=== PATIENT | female | born 1970 | race Caucasian/White ===

== ENCOUNTER → 2016-12-11 | Outpatient (CLI) | payer OTHER ==
[~2016-12-11] MED LIST: ADV500INH INH; CETI10TA3 PO; FURO80TA2 PO; IBUP200T2 PO; IPRATROPIUM INH; KLOR20TA PO; MECL-68 PO; MONT10TA2 PO; OMEP20CA3 PO; SIMV20TA2 PO; VENTAER IN; albuterol neb INH
[2016-12-11 18:33] LABS: BASO # 0.1 K/mm3 (0.0-0.2); BASO % 1.2 % (0.0-1.0); EOS # 0.2 K/mm3 (0.0-0.50); EOS % 1.6 % (0.0-3.0); LYMPH # 2.4 K/mm3 (1.5-4.5); MEAN CORPUSCULAR HEMOGLOBIN 30.6 pg (27.0-33.0); MEAN CORPUSCULAR HGB CONC 34.1 g/dl (32.0-36.5); MEAN CORPUSCULAR VOLUME 89.7 fl (80.0-96.0); MONO # 0.6 K/mm3 (0.0-0.8); MONO % 4.9 % (0.0-5.0); NEUTROPHILS # 8.2 K/mm3 (1.8-7.7); NEUTROPHILS % 70.2 % (36.0-66.0); RED CELL DISTRIBUTION WIDTH 13.6 % (11.5-14.5); WHITE BLOOD COUNT 11.6 K/mm3 (4.0-10.0)
[2016-12-11 18:42] LABS: ALBUMIN 3.3 GM/DL (3.2-5.2); ALBUMIN/GLOBULIN RATIO 0.94 (1.00-1.93); ALKALINE PHOSPHATASE 111 U/L (45-117); ALT/SGPT 19 U/L (12-78); ANION GAP 11 MEQ/L (8-16); AST/SGOT 11 U/L (15-37); BILIRUBIN,TOTAL 0.3 MG/DL (0.2-1.0); BLOOD UREA NITROGEN 14 MG/DL (7-18); CALCIUM LEVEL 8.7 MG/DL (8.5-10.1); CARBON DIOXIDE LEVEL 33 MEQ/L (21-32); CHLORIDE LEVEL 98 MEQ/L (98-107); CREATININE FOR GFR 0.72 MG/DL (0.55-1.02); GLOMERULAR FILTRATION RATE > 60.0 (>58); GLUCOSE, FASTING 114 MG/DL (70-105); SODIUM LEVEL 142 MEQ/L (136-145); TOTAL PROTEIN 6.8 GM/DL (6.4-8.2)
[2016-12-11 18:46] LABS: CHOLESTEROL LEVEL 169 MG/DL (<200); TRIGLYCERIDES LEVEL 201 MG/DL (<150)
--- NOTE | 2016-12-12 02:44 | REP ---
Clinical: Dyspnea with acute upper respiratory tract symptoms . Comparison: 01/08/2016 . Technique: PA and lateral. Findings: The mediastinum and cardiac silhouette are normal. The lung gamble are clear and without acute consolidation, effusion, or pneumothorax. The skeletal structures are intact and normal. Impression: 1. No acute cardiopulmonary process. Signed by Alex Bro MD 12/12/2016 02:36 A
== END ==
LOC: M LAB 15:44
PROVIDERS: ATTEND Physician Assistant
DX: J06.9 Acute upper respiratory infection, unspecified (principal); E11.9 Type 2 diabetes mellitus without complications; I10 Essential (primary) hypertension

== ENCOUNTER → 2017-01-23 | Outpatient (CLI) | payer OTHER ==
--- NOTE | 2017-01-23 14:10 | REP ---
EYE, FOREIGN BODY, TWO VIEWS: HISTORY: Foreign body. Mucosal thickening is present in the left maxillary sinus. There is no fracture, bone lesion, or radiopaque foreign body. IMPRESSION: There is no radiopaque foreign body. Signed by Sukumar Petit MD 01/23/2017 02:41 P
== END ==
LOC: M RAD 12:46
PROVIDERS: ATTEND Psychiatry & Neurology Neurology
DX: H44.60 Unspecified retained (old) intraocular foreign body, magnetic (principal)

== ENCOUNTER → 2017-02-10 | Outpatient (REF) | payer OTHER | LOC: M LAB REF 09:31 | PROVIDERS: ATTEND Obstetrics & Gynecology | DX: N92.1 Excessive and frequent menstruation with irregular cycle (principal); A63.0 Anogenital (venereal) warts ==

== ENCOUNTER → 2017-02-13 | Outpatient (CLI) | payer OTHER ==
[2017-02-13 18:05] LABS: BASO % 0.5 % (0.0-1.0); EOS # 0.1 K/mm3 (0.0-0.50); LYMPH # 2.1 K/mm3 (1.5-4.5); LYMPH % 23.6 % (24.0-44.0); MEAN CORPUSCULAR HGB CONC 33.1 g/dl (32.0-36.5); MEAN CORPUSCULAR VOLUME 90.5 fl (80.0-96.0); MONO # 0.6 K/mm3 (0.0-0.8); MONO % 6.9 % (0.0-5.0); NEUTROPHILS % 67.3 % (36.0-66.0); RED CELL DISTRIBUTION WIDTH 12.8 % (11.5-14.5)
== END ==
LOC: M WUC 12:16
PROVIDERS: ATTEND Physician Assistant
DX: D72.829 Elevated white blood cell count, unspecified (principal)

== ENCOUNTER → 2017-02-13 | Outpatient (CLI) | payer OTHER ==
[2017-02-13 18:00] LABS: ALBUMIN 3.1 GM/DL (3.2-5.2); ALBUMIN/GLOBULIN RATIO 0.86 (1.00-1.93); ALKALINE PHOSPHATASE 90 U/L (45-117); ALT/SGPT 18 U/L (12-78); ANION GAP 9 MEQ/L (8-16); AST/SGOT 7 U/L (15-37); BILIRUBIN,TOTAL 0.2 MG/DL (0.2-1.0); BLOOD UREA NITROGEN 11 MG/DL (7-18); CARBON DIOXIDE LEVEL 32 MEQ/L (21-32); CHLORIDE LEVEL 99 MEQ/L (98-107); CREATININE FOR GFR 0.72 MG/DL (0.55-1.02); GLOMERULAR FILTRATION RATE > 60.0 (>58); GLUCOSE, FASTING 169 MG/DL (70-105); POTASSIUM SERUM 3.7 MEQ/L (3.5-5.1); SODIUM LEVEL 140 MEQ/L (136-145); TOTAL PROTEIN 6.7 GM/DL (6.4-8.2)
[2017-02-13 18:43] LABS: BASO % 0.6 % (0.0-1.0); EOS # 0.1 K/mm3 (0.0-0.50); EOS % 1.2 % (0.0-3.0); LARGE UNSTAINED CELL # 0.1 K/mm3 (0.0-0.4); LARGE UNSTAINED CELL % 1.1 % (0.0-4.0); LYMPH % 23.6 % (24.0-44.0); MEAN CORPUSCULAR HEMOGLOBIN 30.1 pg (27.0-33.0); MEAN CORPUSCULAR VOLUME 91.4 fl (80.0-96.0); MONO # 0.4 K/mm3 (0.0-0.8); MONO % 4.8 % (0.0-5.0); NEUTROPHILS # 5.8 K/mm3 (1.8-7.7); NEUTROPHILS % 68.7 % (36.0-66.0); PLATELET COUNT, AUTOMATED 208 k/mm3 (150-450); RED CELL DISTRIBUTION WIDTH 12.8 % (11.5-14.5); WHITE BLOOD COUNT 8.4 K/mm3 (4.0-10.0)
[2017-02-13 19:52] LABS: ERYTHROCYTE SEDIMENTATION RATE 28 mm/hr (0-20)
== END ==
LOC: M WUC 12:18
PROVIDERS: ATTEND Psychiatry & Neurology Neurology
DX: R51 Headache (principal)

== ENCOUNTER 2017-05-09 11:49 | Observation (INO) | payer OTHER ==
[~2017-05-09] VITALS: Ht 162.6 cm; Wt 145.3 kg
[2017-05-09] MEDS ORDERED: COMBAER6 INH (12:04)
[2017-05-09] MEDS ORDERED: ASMA110A IN (12:04)
[2017-05-09] MEDS ORDERED: HYDR12.55 PO (12:07)
[2017-05-09] MEDS ORDERED: LOSA50TA20 PO (12:07)
[2017-05-09] MEDS ORDERED: METH-107 PO (12:07)
[2017-05-09] MEDS ORDERED: METF500T PO (12:07)
[2017-05-09] MEDS ORDERED: DEPA250T32 PO (12:07)
[2017-05-09] MEDS ORDERED: GABA-283 PO (12:07)
[2017-05-09] MEDS ORDERED: INVO100T PO (12:08)
[2017-05-09] MEDS ORDERED: PANT40TA2 (12:08)
[2017-05-09] MEDS ORDERED: ALOG25TA (12:08)
[2017-05-09] MEDS ORDERED: PRED20TA PO ×2 (12:18→15:12)
[2017-05-09] MEDS ORDERED: LEVA750T PO (12:18)
[2017-05-09] MEDS ORDERED: methylPREDNISolone INJ 125 MG/2 ML VIAL (J2930) IV ONE (12:30)
--- NOTE | 2017-05-09 12:58 | REP ---
PORTABLE CHEST: AP portable view of the chest is performed and compared to prior study of 12/11/2016. The heart is upper limits of normal in size. No acute infiltrate is seen. Mediastinal silhouette is unchanged. IMPRESSION: No acute infiltrate. Signed by Soto Arcos MD 05/09/2017 05:22 P
[2017-05-09] MEDS: ALBUTEROL SULFATE 2.5 MG/0.5 ML INH NEB SOLN INH SCH ×3 (13:00→13:22)
[2017-05-09 13:10] LABS: BASO # 0.1 K/mm3 (0.0-0.2); BASO % 0.6 % (0.0-1.0); EOS % 0.2 % (0.0-3.0); LARGE UNSTAINED CELL # 0.2 K/mm3 (0.0-0.4); LARGE UNSTAINED CELL % 1.7 % (0.0-4.0); LYMPH # 2.5 K/mm3 (1.5-4.5); LYMPH % 21.2 % (24.0-44.0); MEAN CORPUSCULAR HGB CONC 33.7 g/dl (32.0-36.5); MEAN CORPUSCULAR VOLUME 91.8 fl (80.0-96.0); MONO # 0.7 K/mm3 (0.0-0.8); MONO % 6.1 % (0.0-5.0); NEUTROPHILS # 7.6 K/mm3 (1.8-7.7); NEUTROPHILS % 70.2 % (36.0-66.0); PLATELET COUNT, AUTOMATED 252 k/mm3 (150-450); RED CELL DISTRIBUTION WIDTH 14.5 % (11.5-14.5); WHITE BLOOD COUNT 10.8 K/mm3 (4.0-10.0)
[2017-05-09 13:34] LABS: ALBUMIN/GLOBULIN RATIO 0.67 (1.00-1.93); ALKALINE PHOSPHATASE 86 U/L (45-117); ALT/SGPT 23 U/L (12-78); ANION GAP 13 MEQ/L (8-16); AST/SGOT 11 U/L (15-37); BILIRUBIN,DIRECT < 0.1 MG/DL (0.0-0.2); BILIRUBIN,TOTAL 0.3 MG/DL (0.2-1.0); BLOOD UREA NITROGEN 16 MG/DL (7-18); CALCIUM LEVEL 9.3 MG/DL (8.5-10.1); CARBON DIOXIDE LEVEL 29 MEQ/L (21-32); CHLORIDE LEVEL 95 MEQ/L (98-107); CREATININE FOR GFR 0.96 MG/DL (0.55-1.02); GLOMERULAR FILTRATION RATE > 60.0 (>58); GLUCOSE, FASTING 190 MG/DL (70-105); SODIUM LEVEL 137 MEQ/L (136-145); TOTAL PROTEIN 7.5 GM/DL (6.4-8.2)
[2017-05-09] MEDS ORDERED: IPRATROPIUM 0.5MG/ALBUTEROL 2.5MG INH SOL UD 3ML (DUONEB)(J7620) NEB PRN (14:15)
[2017-05-09] MEDS ORDERED: DEXTROSE 50% 50 ML SYRINGE IV PRN (14:15)
[2017-05-09] MEDS ORDERED: GLUCAGON FOR INJ 1 MG VIAL (J1610) SC PRN (14:15)
[2017-05-09] MEDS ORDERED: ACETAMINOPHEN TAB 650MG DOSE (2X325MG) PO PRN (14:15)
[2017-05-09] MEDS ORDERED: ONDANSETRON 4MG/2ML VIAL (J2405) IV PRN (14:15)
[2017-05-09] MEDS ORDERED: GLUCOSE 4 GM CHEW TABLET PO PRN (14:15)
--- NOTE | 2017-05-09 15:01 | HPEPDOC ---
General Date of Admission 05/09/17 Other Providers PCP: Tacho Lind Attending Physician: BENNETT DOAN MD Chief Complaint The patient is a 47-year-old female admitted with a reason for visit of Short Of Breath/Cough. History of Present Illness 47-year-old female with past medical history of COPD, obstructive sleep apnea on CPAP, dyslipidemia, diabetes mellitus, GERD, and lower extremity dependent edema presents to the ER with a chief complaint of worsening shortness of breath over the last 5 days. The patient states that during this time she has been seen in the urgent care clinic as well as her primary care physician's office at which time she was prescribed antibiotics. However, she states that she has not felt any better despite the antibiotics and consistent use of albuterol. She also notes associated subjective fevers, chills, and generalized muscle aches with malaise. She states that she has been having a cough that is nonproductive. At baseline, the patient states she does not wear any supplemental oxygen and is able to ambulate with a rolling walker without any significant respiratory limitations. However, during this time the patient states that she has been feeling short of breath even while at rest. The patient denies any other acute complaints of chest pain, palpitations, abdominal pain, recent travel, sick contacts, or any nausea/vomiting/diarrhea. In the ER, the patient was noted to be hypoxic with an oxygen saturation of 85 percent on ambulation despite nebulizer therapy and IV Solu-Medrol therapy. At this time, the patient will be admitted under the service of Dr. Doan for further evaluation and management of COPD exacerbation. Home Medications Scheduled (Ibuprofen) 200 Mg Tab, 600 MG PO TIDP, (Reported) Albuterol Sulfate (Ventolin Hfa) Aer, 2 PUFFS IN Q4HP, (Reported) Albuterol/Ipratropium (Combivent Respimat 20-100 Mcg/Act) 1 Aer Aer, 1 PUFF INH Q4H, (Reported) Canagliflozin (Invokana) 100 Mg Tab, 100 MG PO DAILY, (Reported) Cetirizine Hcl (Cetirizine Hcl) 10 Mg Tab, 10 MG PO DAILY, (Reported) Divalproex Sodium (Depakote) 250 Mg Tab, 500 MG PO BID, (Reported) Furosemide (Furosemide) 80 Mg Tab, 80 MG PO BID, (Reported) Gabapentin (Gabapentin) 400 Mg Cap, 600 MG PO TID, (Reported) Hydrochlorothiazide (Hydrochlorothiazide) 12.5 Mg Tab, 25 MG PO DAILY, (Reported ) Levofloxacin Hemihydrate (Levaquin) 750 Mg Tab, 750 MG PO DAILY, (Reported) Losartan Potassium (Losartan Potassium) 50 Mg Tab, 50 MG PO DAILY, (Reported) Metformin Hydrochloride (Metformin HCl) 500 Mg Tab, 500 MG PO BID, (Reported) Methocarbamol (Methocarbamol) 500 Mg Tab, 500 MG PO BID, (Reported) Montelukast Sodium (Montelukast Sodium) 10 Mg Tab, 10 MG PO QHS, (Reported) Prednisone (Prednisone) 20 Mg Tab, 20 MG PO ASDIRECTED, (Reported) Simvastatin (Simvastatin) 20 Mg Tab, 20 MG PO DAILY, (Reported) [albuterol neb] , 3 MG INH Q4H, (Reported) [ipratropium neb q4h] , 0.5 MG INH Q4H, (Reported) Miscellaneous Medications (Asmanex 30 Metered Doses) 110 Mcg/Inh Aer, 110 MCG IN, (Reported) Alogliptin Benzoate (Alogliptin) 25 Mg Tab, (Reported) Pantoprazole Sodium (Pantoprazole Sodium) 40 Mg Tab, (Reported) Allergies Coded Allergies: Latex (Verified Allergy, Intermediate, rash, 05/09/17) TAPE (Verified Allergy, Mild, 05/09/17) Past Medical History Medical History As noted in HPI. Surgical History , kidney stone removal Family History Significant Family History: No pertinent family hx Social History * Smoker: other (the patient states that she has smoked 1-2 packs per day of tobacco for the past 30+ years. Over the last few months the patient states that she has cut this down to half pack a day.) Alcohol: Denies Drugs: denies Recent Travel/Sick Contacts: Denies: Recent travel, Recent sick contacts Ambulates with the assistance of a rolling walker secondary to chronic back pain. Is functionally independent at baseline and lives with her . Currently unemployed, applying for disability. Review of Symptoms Other systems 10 point review of systems negative unless otherwise specified in HPI. Physical Examination General Exam: Positive: Alert, Cooperative, No Acute Distress ENT Exam: Positive: Atraumatic, Mucous membr. moist/pink Neck Exam: Negative: JVD Chest Exam: Positive: Wheezing (diffuse expiratory wheeze noted in all lung gamble bilaterally), Diminished, Negative: Rales Heart Exam: Positive: Rate Normal, Normal S1, Normal S2 Abdomen Exam: Positive: Soft, Negative: Tenderness Extremity Exam: Positive: Other (1+ pitting edema bilaterally.), Negative: Tenderness Psych Exam: Positive: Oriented x 3 Vital Signs Vital Signs Date Time Temp Pulse Resp B/P (MAP) Pulse Ox O2 Delivery O2 Flow Rate FiO2 05/09/17 13:00 05/09/17 11:52 98.5 100 18 88 Room Air Laboratory Data Labs 24H Laboratory Tests 2 05/09/17 12:43: White Blood Count 10.8H, Red Blood Count 4.84, Hemoglobin 15.0, Hematocrit 44.4 , Mean Corpuscular Volume 91.8, Mean Corpuscular Hemoglobin 31.0, Mean Corpuscular Hemoglobin Concent 33.7, Red Cell Distribution Width 14.5, Platelet Count 252, Neutrophils (%) (Auto) 70.2H, Lymphocytes (%) (Auto) 21.2L, Monocytes (%) (Auto) 6.1H, Eosinophils (%) (Auto) 0.2, Basophils (%) (Auto) 0.6 , Neutrophils # (Auto) 7.6, Lymphocytes # (Auto) 2.5, Monocytes # (Auto) 0.7, Eosinophils # (Auto) 0.0, Basophils # (Auto) 0.1, Large Unclassified Cells % 1.7 , Large Unclassified Cells # 0.2, Anion Gap 13, Glomerular Filtration Rate > 60.0, Calcium Level 9.3, Aspartate Amino Transf (AST/SGOT) 11L, Alanine Aminotransferase (ALT/SGPT) 23, Alkaline Phosphatase 86, Total Bilirubin 0.3, Direct Bilirubin < 0.1, Total Creatine Kinase 94, Creatine Kinase MB 1.0, Creatine Kinase MB Relative Index 1.06, Troponin I < 0.02, B-Type Natriuretic Peptide 38.5, Total Protein 7.5, Albumin 3.0L, Albumin/Globulin Ratio 0.67L, Thyroid Stimulating Hormone (TSH) 2.940 CBC/BMP Laboratory Tests 05/09/17 12:43 Red Blood Count 4.84, Mean Corpuscular Volume 91.8, Mean Corpuscular Hemoglobin 31.0, Mean Corpuscular Hemoglobin Concent 33.7, Red Cell Distribution Width 14.5 , Neutrophils (%) (Auto) 70.2 H, Lymphocytes (%) (Auto) 21.2 L, Monocytes (%) ( Auto) 6.1 H, Eosinophils (%) (Auto) 0.2, Basophils (%) (Auto) 0.6, Neutrophils # (Auto) 7.6, Lymphocytes # (Auto) 2.5, Monocytes # (Auto) 0.7, Eosinophils # ( Auto) 0.0, Basophils # (Auto) 0.1 Microbiology Microbiology 05/09/17 Blood Culture, Received Pending 05/09/17 Blood Culture, Received Pending Plan / VTE VTE Prophylaxis Ordered?: Yes Plan Plan Acute hypoxic failure 2/2 COPD exacerbation We will admit the patient to the med/surge unit Chest x-ray with no acute infiltrates IV Solu-Medrol, [id number] nebulizer therapy ordered Blood cultures, sputum culture, and respiratory panel ordered It does appear that the patient's symptomatology is consistent with a viral infection, we will withhold administration any advice at this time We will continue to monitor the patient's respiratory status and down titrate supplemental oxygen as tolerated Diabetes mellitus Continue insulin sliding scale Obstructive sleep apnea on CPAP Patient advised to bring in her own CPAP device for use overnight Dyslipidemia Continue statin GERD Continue PPI Dependent lower extremity edema Patient without any signs of underlying decompensated congestive heart failure Continue with hydrochlorothiazide as prescribed History of migrainous headaches Continue valproate for prophylaxis DVT prophylaxis Lovenox subcutaneously The patient will be admitted under the service of Dr. Doan, who will begin to follow the patient on 05/10/17 at 7am. DIANE SANDERS MD May 09, 2017 15:01
[2017-05-09] MEDS ORDERED: CETI10TA PO (15:12)
[2017-05-09] MEDS ORDERED: DIVA500T3 PO (15:12)
[2017-05-09] MEDS ORDERED: GABA600T PO (15:12)
[2017-05-09] MEDS ORDERED: HYDR25TAB PO (15:12)
[2017-05-09] MEDS ORDERED: ALOG25TA PO (15:12)
[2017-05-09] MEDS ORDERED: ASMA16.7 INH (15:12)
[2017-05-09] MEDS ORDERED: IBUP60TA PO (15:12)
[2017-05-09] MEDS ORDERED: PANT40TA2 PO (15:12)
[2017-05-09] MEDS ORDERED: MONT10TA2 PO (15:12)
[2017-05-09] MEDS ORDERED: NYST100024 TOP (15:15)
[2017-05-09] MEDS ORDERED: SIMV40TA2 PO (15:15)
[2017-05-09] MEDS ORDERED: TYLE325T5 PO (15:15)
[2017-05-09] MEDS ORDERED: POTASSIUM CHLORIDE 10 MEQ SR TABLET PO ONE (15:15)
[2017-05-09] MEDS ORDERED: IPRASOL4 INH (15:15)
[2017-05-09] MEDS ORDERED: FISH1000 PO (15:16)
[2017-05-09] MEDS ORDERED: VITA100066 PO (15:16)
[2017-05-09 15:37] LABS: MAGNESIUM LEVEL 2.1 MG/DL (1.8-2.4)
[2017-05-09] MEDS: IPRATROPIUM 0.5MG/ALBUTEROL 2.5MG INH SOL UD 3ML (DUONEB)(J7620) NEB SCH ×3 (16:00→23:53)
[2017-05-09] MEDS ORDERED: IBUPROFEN 600 MG TAB PO PRN (16:15)
[2017-05-09] MEDS ORDERED: NYSTATIN 100,000 UNITS/GM TOPICAL PWD 15 GM TOP PRN (16:15)
[2017-05-09 18:30] VITALS: BP 150/78
[2017-05-09] MEDS: HumaLOG INSULIN (NovoLOG) PER UNIT SC SCH ×2 (18:57→20:53)
--- NOTE | 2017-05-09 19:39 | ECGEPIP ---
Stationary ECG Study 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
[2017-05-09 20:22] VITALS: O2SAT 97
[2017-05-09] MEDS: GABAPENTIN 300 MG CAP PO SCH (20:52)
[2017-05-09] MEDS: DIVALPROEX 500 MG TAB PO SCH (20:52)
[2017-05-09] MEDS: METHOCARBAMOL 500 MG TAB PO SCH (20:52)
[2017-05-09] MEDS: methylPREDNISolone INJ 125 MG/2 ML VIAL (J2930) IV SCH (20:52)
[2017-05-09] MEDS: MONTELUKAST 10 MG TAB PO SCH (20:52)
[2017-05-09] MEDS: CETIRIZINE (ZyrTEC) 10 MG TAB PO SCH (20:52)
[2017-05-09] MEDS: SIMVASTATIN 40 MG TAB PO SCH (20:52)
[2017-05-09 22:00] VITALS: BP 133/74
[2017-05-10 02:28] VITALS: O2SAT 90
[2017-05-10] MEDS: IPRATROPIUM 0.5MG/ALBUTEROL 2.5MG INH SOL UD 3ML (DUONEB)(J7620) NEB SCH ×6 (02:34→23:24)
[2017-05-10] MEDS: methylPREDNISolone INJ 125 MG/2 ML VIAL (J2930) IV SCH (05:42)
[2017-05-10 06:00] VITALS: BP 138/65
[2017-05-10 06:08] LABS: MEAN CORPUSCULAR HEMOGLOBIN 30.5 pg (27.0-33.0); MEAN CORPUSCULAR HGB CONC 33.3 g/dl (32.0-36.5); MEAN CORPUSCULAR VOLUME 91.7 fl (80.0-96.0); RED CELL DISTRIBUTION WIDTH 14.6 % (11.5-14.5); WHITE BLOOD COUNT 12.2 K/mm3 (4.0-10.0)
[2017-05-10] MEDS ORDERED: ALBUTEROL SULFATE 2.5 MG/0.5 ML INH NEB SOLN NEB PRN (06:30)
[2017-05-10 06:37] LABS: ANION GAP 8 MEQ/L (8-16); BLOOD UREA NITROGEN 17 MG/DL (7-18); CALCIUM LEVEL 8.8 MG/DL (8.5-10.1); CARBON DIOXIDE LEVEL 32 MEQ/L (21-32); CHLORIDE LEVEL 94 MEQ/L (98-107); CREATININE FOR GFR 0.73 MG/DL (0.55-1.02); GLOMERULAR FILTRATION RATE > 60.0 (>58); GLUCOSE, FASTING 232 MG/DL (70-105); MAGNESIUM LEVEL 2.3 MG/DL (1.8-2.4); POTASSIUM SERUM 3.4 MEQ/L (3.5-5.1); SODIUM LEVEL 134 MEQ/L (136-145)
[2017-05-10] MEDS: METHOCARBAMOL 500 MG TAB PO SCH ×2 (08:20→20:27)
[2017-05-10] MEDS: ENOXAPARIN 40 MG/0.4 ML SYRINGE (J1650) SC SCH (08:20)
[2017-05-10] MEDS: PANTOPRAZOLE 40MG TAB (PROTONIX) PO SCH (08:21)
[2017-05-10] MEDS: OMEGA-3 1050MG CAPSULE PO SCH (08:21)
[2017-05-10] MEDS: DIVALPROEX 500 MG TAB PO SCH ×2 (08:21→20:27)
[2017-05-10] MEDS: GABAPENTIN 300 MG CAP PO SCH ×2 (08:21→20:26)
[2017-05-10] MEDS: hydroCHLOROthiazide 25 MG TAB PO SCH (08:21)
[2017-05-10] MEDS: LOSARTAN 50 MG TAB PO SCH (08:22)
[2017-05-10] MEDS: predniSONE 20 MG TAB PO SCH (08:22)
[2017-05-10] MEDS: HumaLOG INSULIN (NovoLOG) PER UNIT SC SCH ×4 (08:23→20:30)
--- NOTE | 2017-05-10 10:53 | IPNPDOC ---
Subjective Date Seen The patient was seen on 05/10/17. Subjective Chief Complaint/HPI The patient is a 47-year-old female admitted with a reason for visit of Copd Exacerbaton. Events since last encounter feeling better this am . SOB and congestion improving. no fever or chills, no chest pain or SOb , no abdominal pain nausea or vomiting or diarrhea. Objective Physical Examination General Exam: Positive: Alert, Cooperative, No Acute Distress Eye Exam: Positive: PERRLA, Conjunctiva & lids normal, EOMI, Negative: Sclera icteric ENT Exam: Positive: Atraumatic, Mucous membr. moist/pink Neck Exam: Negative: JVD Chest Exam: Positive: Clear to auscultation, Diminished, Negative: Rales Heart Exam: Positive: Rate Normal, Regular Rhythm, Normal S1, Normal S2, Negative: Irregular Rhythm, Gallops, Murmurs, Rubs, Other Abdomen Exam: Positive: Normal bowel sounds, Soft, Negative: Tenderness Extremity Exam: Positive: Edema, Negative: Clubbing, Cyanosis, Normal pulses, Tenderness, Swelling Skin Exam: Positive: Nl turgor and temperature, Negative: Rash, Breakdown Psych Exam: Positive: Oriented x 3 Assessment /Plan Problems (1) COPD exacerbation Status: Acute Problem Text: will continue nebulization , prednisone , antiallergic meds, montelukast. (2) Bacteremia Status: Acute Problem Text: will start vanco rpt blood cultures, mosst possibly contaminant. (3) Diabetes Status: Chronic Problem Text: will start levemir, continue insulin by sliding scale. (4) ZEN on CPAP Status: Chronic (5) Morbid obesity Status: Chronic (6) Encounter for smoking cessation counseling Status: Acute Problem Text: discussed importance of quitting smoking, says she is trying, have offered educational materials to help her quit. Says she has been able to cut down a lot. (7) Hypolipidemia Status: Chronic (8) Hypertension Status: Chronic Plan/VTE VTE Prophylaxis Ordered?: Yes VS, I&O, 24H, Fishbone Vital Signs/I&O Vital Signs Date Time Temp Pulse Resp B/P (MAP) Pulse Ox O2 Delivery O2 Flow Rate FiO2 05/10/17 08:22 138/65 05/10/17 06:00 97.3 70 18 94 NIPPV (BIPAP/CPAP) 05/10/17 02:28 2.0 I&O- Last 24 Hours up to 6 AM 05/10/17 06:00 Intake Total 480 ml Output Total 1300 ml Balance -820 ml Laboratory Data 24H LABS Laboratory Tests 2 05/09/17 12:43: White Blood Count 10.8H, Red Blood Count 4.84, Hemoglobin 15.0, Hematocrit 44.4 , Mean Corpuscular Volume 91.8, Mean Corpuscular Hemoglobin 31.0, Mean Corpuscular Hemoglobin Concent 33.7, Red Cell Distribution Width 14.5, Platelet Count 252, Neutrophils (%) (Auto) 70.2H, Lymphocytes (%) (Auto) 21.2L, Monocytes (%) (Auto) 6.1H, Eosinophils (%) (Auto) 0.2, Basophils (%) (Auto) 0.6 , Neutrophils # (Auto) 7.6, Lymphocytes # (Auto) 2.5, Monocytes # (Auto) 0.7, Eosinophils # (Auto) 0.0, Basophils # (Auto) 0.1, Large Unclassified Cells % 1.7 , Large Unclassified Cells # 0.2, Anion Gap 13, Glomerular Filtration Rate > 60.0, Calcium Level 9.3, Magnesium Level 2.1, Aspartate Amino Transf (AST/SGOT) 11L, Alanine Aminotransferase (ALT/SGPT) 23, Alkaline Phosphatase 86, Total Bilirubin 0.3, Direct Bilirubin < 0.1, Total Creatine Kinase 94, Creatine Kinase MB 1.0, Creatine Kinase MB Relative Index 1.06, Troponin I < 0.02, B- Type Natriuretic Peptide 38.5, Total Protein 7.5, Albumin 3.0L, Albumin/ Globulin Ratio 0.67L, Thyroid Stimulating Hormone (TSH) 2.940 05/09/17 18:37: Bedside Glucose (Misc Panel) 251H 05/09/17 20:27: Bedside Glucose (Misc Panel) 275H 05/10/17 05:32: Anion Gap 8, Glomerular Filtration Rate > 60.0, Calcium Level 8.8, Magnesium Level 2.3, Blood Urea Nitrogen 17, Creatinine 0.73, Sodium Level 134L, Potassium Level 3.4L, Chloride Level 94L, Carbon Dioxide Level 32 CBC/BMP Laboratory Tests 05/09/17 12:43 Red Blood Count 4.84, Mean Corpuscular Volume 91.8, Mean Corpuscular Hemoglobin 31.0, Mean Corpuscular Hemoglobin Concent 33.7, Red Cell Distribution Width 14.5 , Neutrophils (%) (Auto) 70.2 H, Lymphocytes (%) (Auto) 21.2 L, Monocytes (%) ( Auto) 6.1 H, Eosinophils (%) (Auto) 0.2, Basophils (%) (Auto) 0.6, Neutrophils # (Auto) 7.6, Lymphocytes # (Auto) 2.5, Monocytes # (Auto) 0.7, Eosinophils # ( Auto) 0.0, Basophils # (Auto) 0.1 05/10/17 05:32 Red Blood Count 4.43, Mean Corpuscular Volume 91.7, Mean Corpuscular Hemoglobin 30.5, Mean Corpuscular Hemoglobin Concent 33.3, Red Cell Distribution Width 14.6 H, Calcium Level 8.8 Microbiology Microbiology 05/09/17 Blood Culture - Preliminary, Resulted 05/09/17 Blood Culture, Received Pending 05/09/17 Gram Stain - Final, Resulted 05/09/17 Sputum Culture, Resulted Pending 05/09/17 Respiratory Virus Panel (PCR) (NURIS) - Final, Complete BENNETT CARD MD May 10, 2017 10:53
[2017-05-10] MEDS ORDERED: POTASSIUM CHLORIDE 10 MEQ SR TABLET PO ONE (11:00)
--- NOTE | 2017-05-10 11:21 | PHACANCOPD ---
PHARMACY VANCOMYCIN DOSING Pt Demographics Demographics Patient Age:47 , Weight:145.300 , Gender: female Adjusted Body Weight Date: 05/10/17, Adjusted Body Weight: [71] Kg Events Past 24 Hours Events Past 24 Hours: NO: Dialysis, Diuretic Therapy, Change in CrCl, Fever, Elevation in WBC, Pending Diagnostics, Pending Procedures, Other Vancomycin Vancomycin indication: bacteremia Vancomycin Target Ranges: 15-20 mcg/ml Vancomycin Load Y/N: Yes Load Dose Date Time Vancomycin Load Dose: 1000mg Date: 05/10 Time: 11:30 Vancomycin Dose Date: 05/10/17. Current Vancomycin Dose: [1g IV q8h @14] Intermittent Dosing?: No Labs Labs Item Value Date Time White Blood Count 10.8 K/mm3 H 05/09/17 1243 White Blood Count 12.2 K/mm3 H 05/10/17 0532 Creatinine 0.96 MG/DL 05/09/17 1243 Creatinine 0.73 MG/DL 05/10/17 0532 Micro Microbiology 05/10/17 Blood Culture, Received Pending 05/09/17 Blood Culture - Preliminary, Resulted 05/09/17 Blood Culture, Received Pending 05/09/17 Gram Stain - Final, Resulted 05/09/17 Sputum Culture, Resulted Pending 05/09/17 Respiratory Virus Panel (PCR) (NURIS) - Final, Complete Creatinine Clearance Date:05/10/17. Creatinine Clearance: [>100 ml/min using adjusted BW]. Assessment and Plan Maintaining Current Dose?: Yes Reason for dose change: No Dose Change Pharmacist Note Pharmacist Note Date: 05/10/17. Pharmacist note: pt was admitted yesterday for COPD exacerbation , blood cultures 1/2 are preliminary positive for G+ cocci in clusters. She has no relevant culture Hx, and has not been on vancomycin at our facility in the past. She is currently at her baseline SCr. I have started her on a 2g load, followed by 1g IV q8h. I will continue to monitor cultures and follow up with a trough as necessary. Zeke Su Pharm.D. May 10, 2017 11:21
[2017-05-10] MEDS ORDERED: VANCOMYCIN HCL 1,000 MG, VIAL MATE ADAPTER 1 EACH in D5W 250 ML IV ONE (11:30)
[2017-05-10] MEDS: LEVEMIR (INSULIN DETEMIR) 1 UNITS/0.01ML SC SCH (12:26)
[2017-05-10 14:00] VITALS: BP 117/60
[2017-05-10] MEDS: VANCOMYCIN HCL 1,000 MG, VIAL MATE ADAPTER 1 EACH in D5W 250 ML IV SCH ×2 (14:51→21:57)
[2017-05-10] MEDS: MONTELUKAST 10 MG TAB PO SCH (20:26)
[2017-05-10] MEDS: CETIRIZINE (ZyrTEC) 10 MG TAB PO SCH (20:26)
[2017-05-10] MEDS: SIMVASTATIN 40 MG TAB PO SCH (20:27)
[2017-05-10 22:00] VITALS: BP 145/75
[2017-05-10 23:17] VITALS: O2SAT 97
[2017-05-11] MEDS: IPRATROPIUM 0.5MG/ALBUTEROL 2.5MG INH SOL UD 3ML (DUONEB)(J7620) NEB SCH ×3 (03:58→11:04)
[2017-05-11 06:00] VITALS: BP 134/86
[2017-05-11 06:02] LABS: MEAN CORPUSCULAR HEMOGLOBIN 30.8 pg (27.0-33.0); MEAN CORPUSCULAR HGB CONC 33.5 g/dl (32.0-36.5); MEAN CORPUSCULAR VOLUME 92.1 fl (80.0-96.0); RED CELL DISTRIBUTION WIDTH 14.6 % (11.5-14.5); WHITE BLOOD COUNT 11.3 K/mm3 (4.0-10.0)
[2017-05-11] MEDS: VANCOMYCIN HCL 1,000 MG, VIAL MATE ADAPTER 1 EACH in D5W 250 ML IV SCH (06:20)
[2017-05-11 06:31] LABS: ANION GAP 8 MEQ/L (8-16); BLOOD UREA NITROGEN 15 MG/DL (7-18); CALCIUM LEVEL 8.4 MG/DL (8.5-10.1); CARBON DIOXIDE LEVEL 32 MEQ/L (21-32); CHLORIDE LEVEL 97 MEQ/L (98-107); CREATININE FOR GFR 0.75 MG/DL (0.55-1.02); GLOMERULAR FILTRATION RATE > 60.0 (>58); GLUCOSE, FASTING 175 MG/DL (70-105); MAGNESIUM LEVEL 2.3 MG/DL (1.8-2.4); SODIUM LEVEL 137 MEQ/L (136-145)
[2017-05-11] MEDS ORDERED: POTASSIUM CHLORIDE 10 MEQ SR TABLET PO ONE ×2 (08:00→10:00)
[2017-05-11] MEDS ORDERED: PRED10TA PO (08:03)
[2017-05-11] MEDS: LEVEMIR (INSULIN DETEMIR) 1 UNITS/0.01ML SC SCH (08:47)
[2017-05-11] MEDS: OMEGA-3 1050MG CAPSULE PO SCH (08:48)
[2017-05-11] MEDS: ENOXAPARIN 40 MG/0.4 ML SYRINGE (J1650) SC SCH (08:48)
[2017-05-11] MEDS: METHOCARBAMOL 500 MG TAB PO SCH (08:48)
[2017-05-11] MEDS: GABAPENTIN 300 MG CAP PO SCH (08:48)
[2017-05-11 08:49] VITALS: BP 134/86
[2017-05-11] MEDS: LOSARTAN 50 MG TAB PO SCH (08:49)
[2017-05-11] MEDS: DIVALPROEX 500 MG TAB PO SCH (08:49)
[2017-05-11] MEDS: predniSONE 20 MG TAB PO SCH (08:49)
[2017-05-11] MEDS: PANTOPRAZOLE 40MG TAB (PROTONIX) PO SCH (08:50)
[2017-05-11] MEDS: hydroCHLOROthiazide 25 MG TAB PO SCH (08:50)
[2017-05-11] MEDS: HumaLOG INSULIN (NovoLOG) PER UNIT SC SCH (08:50)
--- NOTE | 2017-05-12 21:59 | DSES ---
DATE OF ADMISSION: 05/09/2017 DATE OF DISCHARGE: 05/11/2017 PRIMARY CARE PROVIDER: Tacho Lind MD DISCHARGE DIAGNOSES: 1. Chronic obstructive pulmonary disease (COPD) exacerbation. 2. Acute bronchitis. 3. Obstructive sleep apnea (ZEN) on continuous positive airway pressure (CPAP). 4. Dyslipidemia. 5. Diabetes. 6. Gastroesophageal reflux disease (GERD). 7. Morbid obesity. 8. Bacteremia with gram-positive cocci in clusters, one out of two bottles, contaminant. DISCHARGE MEDICATIONS: - Tylenol 650 mg by mouth four times a day as needed for pain - albuterol ipratropium nebulizer solution one solution four times a day - albuterol ipratropium MDI one puff every four hours as needed for shortness of breath - alogliptin 25 mg by mouth daily - canagliflozin 100 mg by mouth daily - cetirizine 10 mg at bedtime - vitamin D 1000 units once a week - divalproex sodium 500 mg by mouth twice a day - fish oil 1000 mg by mouth every week - gabapentin 600 mg by mouth twice a day - hydrochlorothiazide 25 mg by mouth daily - ibuprofen 600 mg by mouth four times a day as needed for pain - levofloxacin 750 mg by mouth at bedtime - losartan 50 mg by mouth daily - metformin 500 mg by mouth twice a day - methocarbamol 500 mg by mouth twice a day - mometasone inhaler 100 mcg at bedtime - montelukast 10 mg at bedtime - Nystatin powder twice a day as needed for rash - pantoprazole 40 mg by mouth daily - prednisone tapering course as directed - simvastatin 40 mg at bedtime. HOSPITAL COURSE: This is a 47 female who presented to the hospital with complaints of increasing shortness of breath and congestion and cough going on for one week. Went to see urgent care and followed by primary care, and was instructed to come to the emergency room. In the emergency department (ED), the patient was found to have COPD exacerbation and acute bronchitis. The patient was admitted to hospital, treated with nebulizers and steroids. The patient's initial blood culture from ED one out of two bottles came back positive for gram-positive cocci in clusters, so the patient was empirically started on vancomycin. However, the second bottle came back negative, so it was thought to be contaminant, so vancomycin was discontinued. The patient was given prescription for Levofloxacin and discharged. The patient's potassium was low due to nebulizers, so was given replacement. At present, the patient's symptoms have almost resolved. The patient's vitals are stable and the patient is functionally at baseline. The patient is going to be discharged home in stable condition. PHYSICAL EXAMINATION: VITAL SIGNS: Temperature 96.1, pulse 75, respiratory rate 18, blood pressure 134/86, pulse oximetry 92% with two liters. Subsequently, the patient's oxygenation was checked, it was 96% on room air. GENERAL: Patient awake, alert, and oriented times three. Sitting up in bed in no acute distress. HEENT: Normocephalic, atraumatic. Moist mucous membranes. Anicteric eyes. CHEST: Bilateral mild wheezing. No crackles. Good air entry. CARDIOVASCULAR: S1, S2 regular. No rub, murmur or gallop. ABDOMEN: Obese, soft, nontender. Bowel sounds present. EXTREMITIES: No edema. LABORATORY DATA: WBC 11.3, hemoglobin 13.6, platelets 223. Sodium 137, potassium 3, has been replaced, chloride 97, bicarbonate 32, BUN 15, creatinine 0.7, glucose 175, calcium 8.4, magnesium 2.3. IMAGING: Chest x-ray: No acute infiltrate. DISPOSITION: The patient is discharged home in stable condition. DISCHARGE INSTRUCTIONS: Patient to followup with primary care provider in one week. Carbohydrate consistent diet. Activity as tolerated. MTDD
== END 2017-05-11 12:22 | disposition home or self-care (01) ==
LOC: M ED 12:26 → M ED INP 14:14 → INTOOBSV 14:14 → M MS5PR 16:16
PROVIDERS: ADMIT Internal Medicine; ATTEND Internal Medicine Nephrology
DX: J44.1 Chronic obstructive pulmonary disease with (acute) exacerbation (principal); R78.81 Bacteremia; J20.9 Acute bronchitis, unspecified; G47.33 Obstructive sleep apnea (adult) (pediatric); E78.5 Hyperlipidemia, unspecified; E11.9 Type 2 diabetes mellitus without complications; K21.9 Gastro-esophageal reflux disease without esophagitis; Z95.0 Presence of cardiac pacemaker; F17.210 Nicotine dependence, cigarettes, uncomplicated; Z91.040 Latex allergy status; Z79.899 Other long term (current) drug therapy; R60.9 Edema, unspecified; E66.01 Morbid (severe) obesity due to excess calories

== ENCOUNTER → 2017-07-04 | Outpatient (CLI) | payer OTHER ==
[~2017-07-04] MED LIST changes: +ALOG25TA; +ALOG25TA PO; +ASMA110A IN; +ASMA16.7 INH; +CETI10TA PO; +COMBAER6 INH; +DEPA250T32 PO; +DIVA500T3 PO; +FISH1000 PO; +GABA-283 PO; +GABA600T PO; +HYDR12.55 PO; +HYDR25TAB PO; +IBUP1TAB6 PO; +INVO100T PO; +IPRASOL4 INH; +LEVA750T7 PO; +LOSA50TA20 PO; +METF500T13 PO; +METH1TAB40 PO; +NYST1POW9 TOP; +PANT40TA2; +PANT40TA2 PO; +PRED10TA2 PO; +PRED20TA PO; +SIMV40TA2 PO; +TYLE325T5 PO; +VITA100066 PO
[2017-07-04 18:41] LABS: ALBUMIN 3.1 GM/DL (3.2-5.2); ANION GAP 11 MEQ/L (8-16); BLOOD UREA NITROGEN 12 MG/DL (7-18); CALCIUM LEVEL 8.9 MG/DL (8.5-10.1); CARBON DIOXIDE LEVEL 31 MEQ/L (21-32); CHLORIDE LEVEL 98 MEQ/L (98-107); CREATININE FOR GFR 0.75 MG/DL (0.55-1.02); GLOMERULAR FILTRATION RATE > 60.0 (>58); GLUCOSE, FASTING 106 MG/DL (70-105); MAGNESIUM LEVEL 1.9 MG/DL (1.8-2.4); PHOSPHORUS LEVEL 3.9 MG/DL (2.5-4.9); POTASSIUM SERUM 3.5 MEQ/L (3.5-5.1); SODIUM LEVEL 140 MEQ/L (136-145)
== END ==
LOC: M WUC 15:16
PROVIDERS: ATTEND Internal Medicine Cardiovascular Disease
DX: I10 Essential (primary) hypertension (principal)

== ENCOUNTER → 2017-08-15 | Outpatient (CLI) | payer OTHER ==
--- NOTE | 2017-08-15 12:58 | REP ---
PELVIC ULTRASOUND: Real-time sonographic of the pelvis performed utilized transabdominal and endovaginal technique. Study is extremely limited due to patient body habitus. Urinary bladder measures 12.0 x 5.1 x 8.7 cm. Uterus measures 7.5 x 3.2 x 3.6 cm. Endometrial thickness is 8 mm. Right ovary measures 1.8 x 1.2 x 2.1 cm and left ovary 4.0 x 4.0 x 3.4 cm. There is a left ovarian cyst which measures 2.8 x 2.2 x 2.8 cm. There is blood flow seen in each ovary with duplex Doppler evaluation, with no torsion. There is no other evidence of adnexal mass or free fluid. Tiny nabothian cysts are seen in the region of the cervix. IMPRESSION: Small left ovarian cysts 2.8 cm in diameter. Signed by Soto Arcos MD 08/15/2017 02:24 P
== END ==
LOC: M RAD 10:55
PROVIDERS: ATTEND Physician Assistant
DX: N83.202 Unspecified ovarian cyst, left side (principal)

== ENCOUNTER → 2017-10-20 | Outpatient (CLI) | payer OTHER ==
[2017-10-20 14:56] LABS: ALBUMIN/GLOBULIN RATIO 0.79 (1.00-1.93); ALKALINE PHOSPHATASE 93 U/L (45-117); ALT/SGPT 16 U/L (12-78); ANION GAP 9 MEQ/L (8-16); AST/SGOT 10 U/L (7-37); BILIRUBIN,TOTAL 0.3 MG/DL (0.2-1.0); BLOOD UREA NITROGEN 13 MG/DL (7-18); CALCIUM LEVEL 9.4 MG/DL (8.5-10.1); CARBON DIOXIDE LEVEL 34 MEQ/L (21-32); CHLORIDE LEVEL 94 MEQ/L (98-107); GLOMERULAR FILTRATION RATE > 60.0 (>58); GLUCOSE, FASTING 152 MG/DL (70-105); POTASSIUM SERUM 4.1 MEQ/L (3.5-5.1); SODIUM LEVEL 137 MEQ/L (136-145); TOTAL PROTEIN 6.8 GM/DL (6.4-8.2)
[2017-10-20 15:19] LABS: BASO # 0.1 10^3/uL (0.0-0.2); BASO % 0.6 % (0.0-1.0); EOS # 0.1 10^3/uL (0.0-0.50); EOS % 1.2 % (0.0-3.0); LYMPH % 28.4 % (24.0-44.0); MEAN CORPUSCULAR HEMOGLOBIN 28.5 pg (27.0-33.0); MEAN CORPUSCULAR HGB CONC 31.8 g/dl (32.0-36.5); MEAN CORPUSCULAR VOLUME 89.6 fl (80.0-96.0); MONO # 0.5 10^3/uL (0.0-0.8); MONO % 4.8 % (0.0-5.0); NEUTROPHILS # 6.8 10^3/uL (1.8-7.7); PLATELET COUNT, AUTOMATED 282 10^3/uL (150-450); RED CELL DISTRIBUTION WIDTH 14.6 % (11.5-14.5); WHITE BLOOD COUNT 10.7 10^3/uL (4.0-10.0)
== END ==
LOC: M WUC 12:46
PROVIDERS: ATTEND Psychiatry & Neurology Neurology
DX: Z51.81 Encounter for therapeutic drug level monitoring (principal)

== ENCOUNTER → 2018-04-27 | Outpatient (CLI) | payer OTHER ==
[2018-04-27 15:00] LABS: BASO # 0.1 10^3/uL (0.0-0.2); BASO % 0.8 % (0.0-1.0); EOS # 0.2 10^3/uL (0.0-0.50); EOS % 2.1 % (0.0-3.0); HEMOGLOBIN 13.5 g/dl (12.0-15.5); IMMATURE GRANULOCYTE % 0.6 % (0-3.0); LYMPH # 3.3 10^3/uL (1.5-4.5); LYMPH % 38.2 % (24.0-44.0); MEAN CORPUSCULAR HEMOGLOBIN 28.7 pg (27.0-33.0); MEAN CORPUSCULAR HGB CONC 32.1 g/dl (32.0-36.5); MEAN CORPUSCULAR VOLUME 89.4 fl (80.0-96.0); MONO # 0.5 10^3/uL (0.0-0.8); MONO % 5.6 % (0.0-5.0); NEUTROPHILS # 4.6 10^3/uL (1.8-7.7); NEUTROPHILS % 52.7 % (36.0-66.0); PLATELET COUNT, AUTOMATED 243 10^3/uL (150-450); RED CELL DISTRIBUTION WIDTH 15.1 % (11.5-14.5); WHITE BLOOD COUNT 8.7 10^3/uL (4.0-10.0)
[2018-04-27 15:20] LABS: AMMONIA 40 uMOL/L (<32)
[2018-04-27 15:30] LABS: ALBUMIN 3.2 GM/DL (3.2-5.2); ALBUMIN/GLOBULIN RATIO 0.86 (1.00-1.93); ALKALINE PHOSPHATASE 111 U/L (45-117); ALT/SGPT 18 U/L (12-78); ANION GAP 6 MEQ/L (8-16); AST/SGOT 9 U/L (7-37); BILIRUBIN,TOTAL 0.2 MG/DL (0.2-1.0); BLOOD UREA NITROGEN 21 MG/DL (7-18); CALCIUM LEVEL 9.1 MG/DL (8.5-10.1); CARBON DIOXIDE LEVEL 37 MEQ/L (21-32); CHLORIDE LEVEL 101 MEQ/L (98-107); CREATININE FOR GFR 0.67 MG/DL (0.55-1.30); GLOMERULAR FILTRATION RATE > 60.0 (>51); GLUCOSE, FASTING 157 MG/DL (70-100); SODIUM LEVEL 144 MEQ/L (136-145); TOTAL PROTEIN 6.9 GM/DL (6.4-8.2); VALPROIC ACID (DEPAKOTE) 30.8 UG/ML (50.0-100.0)
== END ==
LOC: M WUC 13:07
DX: M25.512 Pain in left shoulder (principal); R51 Headache
CPT/HCPCS: 82140

== ENCOUNTER → 2018-09-01 | Outpatient (REF) | LOC: M SMT 12:47 | DX: Z00.00 Encounter for general adult medical examination without abnormal findings (principal) ==

== ENCOUNTER → 2018-10-14 | Outpatient (REF) | payer OTHER ==
[2018-10-14 12:11] LABS: ALBUMIN 3.4 GM/DL (3.2-5.2); ALBUMIN/GLOBULIN RATIO 0.94 (1.00-1.93); ALKALINE PHOSPHATASE 110 U/L (45-117); ALT/SGPT 23 U/L (12-78); ANION GAP 7 MEQ/L (8-16); AST/SGOT 10 U/L (7-37); BILIRUBIN,TOTAL 0.3 MG/DL (0.2-1.0); BLOOD UREA NITROGEN 18 MG/DL (7-18); CALCIUM LEVEL 8.9 MG/DL (8.5-10.1); CARBON DIOXIDE LEVEL 31 MEQ/L (21-32); CHLORIDE LEVEL 103 MEQ/L (98-107); CHOLESTEROL LEVEL 179 MG/DL (<200); CHOLESTEROL RISK RATIO 5.593 (<5); CREATININE FOR GFR 0.77 MG/DL (0.55-1.30); GLOMERULAR FILTRATION RATE > 60.0 (>51); GLUCOSE, FASTING 149 MG/DL (70-100); HDL CHOLESTEROL 32 MG/DL (>40); LDL CHOLESTEROL 103 MG/DL (<100); NON-HDL-C 147 MG/DL; POTASSIUM SERUM 4.2 MEQ/L (3.5-5.1); SODIUM LEVEL 141 MEQ/L (136-145); TRIGLYCERIDES LEVEL 218 MG/DL (<150)
[2018-10-14 12:14] LABS: VITAMIN B12 LEVEL 1303 PG/ML (247-911)
[2018-10-14 12:37] LABS: MAU/CREAT RATIO 40.7 MCG/MG (0.0-30.0)
[2018-10-14 13:17] LABS: ESTIMATED AVERAGE GLUCOSE 174 MG/DL (60-110); HEMOGLOBIN A1c 7.7 %
== END ==
LOC: M SFHCPLAZ 09:28
DX: E11.9 Type 2 diabetes mellitus without complications (principal); Z13.220 Encounter for screening for lipoid disorders
CPT/HCPCS: 82607

== ENCOUNTER → 2018-11-10 | Outpatient (REF) | payer OTHER ==
[~2018-11-10] MED LIST changes: -DIVA500T3 PO; +DIVA500T94 PO; -GABA-283 PO; +GABA-845 PO; +IPRA0.00 INH; -IPRASOL4 INH; -LOSA50TA20 PO; +LOSA50TA73 PO; -PANT40TA2; -PANT40TA2 PO; +PANT40TA3; +PANT40TA3 PO
[2018-11-10 16:57] LABS: ALBUMIN 3.2 GM/DL (3.2-5.2); ALT/SGPT 18 U/L (12-78); BILIRUBIN,TOTAL 0.4 MG/DL (0.2-1.0); BLOOD UREA NITROGEN 17 MG/DL (7-18); CALCIUM LEVEL 8.5 MG/DL (8.5-10.1); CARBON DIOXIDE LEVEL 30 MEQ/L (21-32); CHLORIDE LEVEL 101 MEQ/L (98-107); CHOLESTEROL LEVEL 156 MG/DL (<200); CREATININE FOR GFR 0.73 MG/DL (0.55-1.30); GLOMERULAR FILTRATION RATE > 60.0 (>51); GLUCOSE, FASTING 136 MG/DL (70-100); HDL CHOLESTEROL 26 MG/DL (>40); LDL CHOLESTEROL 95 MG/DL (<100); NON-HDL-C 130 MG/DL; POTASSIUM SERUM 3.2 MEQ/L (3.5-5.1); SODIUM LEVEL 141 MEQ/L (136-145); TOTAL PROTEIN 6.6 GM/DL (6.4-8.2); TRIGLYCERIDES LEVEL 177 MG/DL (<150)
[2018-11-10 17:05] LABS: VITAMIN B12 LEVEL 890 PG/ML (247-911)
[2018-11-10 17:08] LABS: MAU/CREAT RATIO 48.5 MCG/MG (0.0-30.0)
[2018-11-10 17:32] LABS: HEMOGLOBIN A1c 8.3 %
== END ==
LOC: M SFHCPLAZ 12:42
PROVIDERS: ATTEND Family Medicine
DX: E11.9 Type 2 diabetes mellitus without complications (principal); Z13.220 Encounter for screening for lipoid disorders

== ENCOUNTER → 2018-11-11 | Outpatient (CLI) | payer OTHER ==
[~2018-11-11] MED LIST changes: +GASTROGRAFIN SOLUTION 30ML (Q9963) As Ordered ONE; +ISOVUE-370 76% 100ML VIAL (Q9967) As Ordered ONE
--- NOTE | 2018-11-11 19:59 | REP ---
Clinical: Hernia. Technique: Axial contrast enhanced images of the abdomen using oral (per protocol) and 100 ml Isovue 370 intravenous contrast material with coronal and sagittal re-formations. Comparison: 04/28/2013. Findings: Lung bases are clear. Visualized heart and pericardium normal. Liver, spleen, pancreas, gallbladder, bilateral adrenal glands and kidneys are normal. Visualized enteric system is without obstruction or acute inflammatory process. Normal terminal ileum, proximal appendix and cecum are identified. Scattered colonic diverticula noted. No ascites. No free air. No adenopathy. Abdominal aorta without aneurysm or dissection. Musculoskeletal structures without focal osseous abnormality. A very subtle small midline ventral hernia with a 2.2 cm defect through the midline rectus sheath (images 78 - 88). Impression: No obvious acute abdominal pathology appreciated. Very subtle fat containing ventral hernia cannot be excluded. Electronically Signed by Alex Bro MD 11/11/2018 07:51 P
== END ==
LOC: M RAD 14:03
PROVIDERS: ATTEND Student in an Organized Health Care Education/Training Program
DX: K43.9 Ventral hernia without obstruction or gangrene (principal)
CPT/HCPCS: 74160; Q9963; Q9967

== ENCOUNTER → 2019-03-18 | Outpatient (REF) | payer OTHER ==
[~2019-03-18] MED LIST changes: -GABA600T PO; +GABA600T4 PO; -GASTROGRAFIN SOLUTION 30ML (Q9963) As Ordered ONE; -ISOVUE-370 76% 100ML VIAL (Q9967) As Ordered ONE; -LOSA50TA73 PO; +LOSA50TA88 PO
[2019-03-18 19:21] LABS: ALBUMIN 3.3 GM/DL (3.2-5.2); ALT/SGPT 26 U/L (12-78); BILIRUBIN,TOTAL 0.3 MG/DL (0.2-1.0); BLOOD UREA NITROGEN 11 MG/DL (7-18); CALCIUM LEVEL 8.6 MG/DL (8.5-10.1); CARBON DIOXIDE LEVEL 30 MEQ/L (21-32); CHLORIDE LEVEL 103 MEQ/L (98-107); CREATININE FOR GFR 0.74 MG/DL (0.55-1.30); GLOMERULAR FILTRATION RATE > 60.0 (>51); GLUCOSE, FASTING 254 MG/DL (70-100); POTASSIUM SERUM 4.5 MEQ/L (3.5-5.1); SODIUM LEVEL 139 MEQ/L (136-145); TOTAL PROTEIN 6.7 GM/DL (6.4-8.2)
[2019-03-18 19:39] LABS: BASO # 0.1 10^3/uL (0.0-0.2); BASO % 0.9 % (0.0-1.0); EOS # 0.1 10^3/uL (0.0-0.50); EOS % 1.6 % (0.0-3.0); HEMOGLOBIN 14.3 g/dl (12.0-15.5); LYMPH # 2.6 10^3/uL (1.5-4.5); LYMPH % 31.7 % (24.0-44.0); MEAN CORPUSCULAR HEMOGLOBIN 28.8 pg (27.0-33.0); MEAN CORPUSCULAR HGB CONC 31.1 g/dl (32.0-36.5); MEAN CORPUSCULAR VOLUME 92.6 fl (80.0-96.0); MONO # 0.4 10^3/uL (0.0-0.8); MONO % 4.9 % (0.0-5.0); NEUTROPHILS # 4.9 10^3/uL (1.8-7.7); PLATELET COUNT, AUTOMATED 245 10^3/uL (150-450); RED BLOOD COUNT 4.97 10^6/uL (4.00-5.40); WHITE BLOOD COUNT 8.2 10^3/uL (4.0-10.0)
== END ==
LOC: M LABNEURO 13:10
PROVIDERS: ATTEND Psychiatry & Neurology Neurology
DX: R51 Headache (principal); Z51.81 Encounter for therapeutic drug level monitoring

== ENCOUNTER → 2019-03-23 | Outpatient (REF) | payer OTHER | LOC: M SFHCPLAZ 10:12 | PROVIDERS: ATTEND Family Medicine | DX: Z53.9 Procedure and treatment not carried out, unspecified reason (principal); E11.29 Type 2 diabetes mellitus with other diabetic kidney complication ==

== ENCOUNTER → 2019-04-16 | Outpatient (CLI) | payer OTHER ==
--- NOTE | 2019-04-16 14:21 | REP ---
MR CERVICAL SPINE WITHOUT CONTRAST: HISTORY: Cervicalgia. A disc bulge is present at the C3-4 level. There is mild effacement of the thecal sac without spinal cord compression. Bilateral uncinate process hypertrophy is present. This produces minimal narrowing of the C3 neural foramina. Facet hypertrophy is present on the right at the C4-5 level. This produces mild narrowing of the right C4 neural foramen. The left C4 neural foramen is patent. A small right paracentral disc protrusion is present at the C5-6 level. There is minimal effacement of the thecal sac without spinal cord compression. The C5 neural foramina are patent. A disc bulge and small central disc protrusion are present at the C6-7 level. There is mild effacement of the thecal sac without spinal cord compression. The C6 neural foramina are patent. There is no other disc bulge or herniation. The remaining neural foramina are patent. The spinal cord is normal in signal intensity. The C5-6 intervertebral disc is decreased in height consistent with disc degeneration. Normal signal intensity is present in the cervical vertebral bodies. IMPRESSION: There is cervical spondylosis at the C3-4 through C6-7 levels without spinal cord compression. Electronically Signed by Sukumar Petit MD 04/16/2019 02:21 P
== END ==
LOC: M PLARAD 13:10
PROVIDERS: ATTEND Psychiatry & Neurology Neurology
DX: M47.892 Other spondylosis, cervical region (principal)

== ENCOUNTER → 2019-06-01 | Outpatient (CLI) | payer OTHER ==
--- NOTE | 2019-06-06 11:01 | REPMRS ---
Patient History The patient states she has not had a clinical breast exam in over a year. Patient had first child at age 32. No known family history of cancer. Digital Woman Screen Mammo: June 01, 2019 - Exam #: [id number] Bilateral CC and MLO view(s) were taken. Technologist: Anita Schroeder Technologist Prior study comparison: May 22, 2015, bilateral digital woman screen mammo, performed at [facility]. FINDINGS: There are scattered fibroglandular densities. There has been no change in the appearance of the mammogram from the prior studies. There is a mild amount of scattered fibroglandular density which is fairly symmetric. There is no interval development of dominant mass, architectural distortion, or grouped microcalcification suggestive of malignancy. 3-D tomosynthesis shows no additional findings. Assessment: BI-RADS/ACR category 1 mammogram. Negative Mammogram. Recommendation Routine screening mammogram of both breasts in 1 year (for women over age 40). This patient's Lifetime Breast Cancer Risk is estimated at 14.5 %. This mammogram was interpreted with the aid of an FDA-approved computer-aided dectection system. Electronically Signed By: Venu Cerna MD 06/06/19 1100
== END ==
LOC: M WHC 14:17
PROVIDERS: ATTEND Student in an Organized Health Care Education/Training Program
DX: Z12.31 Encounter for screening mammogram for malignant neoplasm of breast (principal)

== ENCOUNTER → 2019-06-28 | Outpatient (CLI) | payer OTHER ==
[2019-06-28 12:36] LABS: HEMOGLOBIN A1c 8.9 %
[2019-06-28 12:57] LABS: APPEARANCE, URINE CLEAR (CLEAR); BACTERIA, URINE AUTO 1+ (NEGATIVE); BILIRUBIN, URINE AUTO NEGATIVE (NEGATIVE); BLOOD, URINE BLOOD 1+ (NEGATIVE); COLOR, URINE YELLOW (YELLOW); GLUCOSE, URINE (UA) AUTO 3+ mg/dL (NEGATIVE); KETONE, URINE AUTO 1+ mg/dL (NEGATIVE); LEUKOCYTE ESTERASE, URINE AUTO NEGATIVE (NEGATIVE); NITRITE, URINE AUTO NEGATIVE (NEGATIVE); PROTEIN, URINE AUTO 2+ mg/dL (NEGATIVE); RBC, URINE AUTO 21 /HPF (0-3); SPECIFIC GRAVITY URINE AUTO 1.023 (1.002-1.035); SQUAMOUS EPITHELIAL CELL UR AU 8 /HPF (0-6); WBC, URINE AUTO 12 /HPF (0-3)
== END ==
LOC: M LAB 10:53
PROVIDERS: ATTEND Student in an Organized Health Care Education/Training Program
DX: R30.0 Dysuria (principal); Z12.31 Encounter for screening mammogram for malignant neoplasm of breast; E11.29 Type 2 diabetes mellitus with other diabetic kidney complication

== ENCOUNTER → 2019-06-28 | Outpatient (CLI) | payer OTHER ==
[2019-06-28 12:15] LABS: BASO # 0.1 10^3/uL (0.0-0.2); BASO % 0.9 % (0.0-1.0); EOS # 0.1 10^3/uL (0.0-0.50); EOS % 1.4 % (0.0-3.0); HEMATOCRIT 47.7 % (36.0-47.0); HEMOGLOBIN 15.5 g/dl (12.0-15.5); LYMPH # 2.6 10^3/uL (1.5-4.5); LYMPH % 37.4 % (24.0-44.0); MEAN CORPUSCULAR HEMOGLOBIN 30.3 pg (27.0-33.0); MEAN CORPUSCULAR HGB CONC 32.5 g/dl (32.0-36.5); MEAN CORPUSCULAR VOLUME 93.3 fl (80.0-96.0); MONO # 0.4 10^3/uL (0.0-0.8); MONO % 6.2 % (0.0-5.0); NEUTROPHILS # 3.7 10^3/uL (1.8-7.7); NEUTROPHILS % 53.1 % (36.0-66.0); PLATELET COUNT, AUTOMATED 182 10^3/uL (150-450); RED BLOOD COUNT 5.11 10^6/uL (4.00-5.40); WHITE BLOOD COUNT 6.9 10^3/uL (4.0-10.0)
[2019-06-28 12:43] LABS: ALBUMIN 3.3 GM/DL (3.2-5.2); ALT/SGPT 22 U/L (12-78); BILIRUBIN,TOTAL 0.3 MG/DL (0.2-1.0); BLOOD UREA NITROGEN 17 MG/DL (7-18); CALCIUM LEVEL 9.1 MG/DL (8.5-10.1); CARBON DIOXIDE LEVEL 34 MEQ/L (21-32); CHLORIDE LEVEL 97 MEQ/L (98-107); CREATININE FOR GFR 0.76 MG/DL (0.55-1.30); GLOMERULAR FILTRATION RATE > 60.0 (>51); GLUCOSE, FASTING 206 MG/DL (70-100); POTASSIUM SERUM 4.9 MEQ/L (3.5-5.1); SODIUM LEVEL 136 MEQ/L (136-145); TOTAL PROTEIN 6.8 GM/DL (6.4-8.2); VALPROIC ACID (DEPAKOTE) 59.1 UG/ML (50.0-100.0)
== END ==
LOC: M LAB 10:47
PROVIDERS: ATTEND Psychiatry & Neurology Neurology
DX: R51 Headache (principal); Z79.899 Other long term (current) drug therapy

== ENCOUNTER → 2019-07-08 | Outpatient (CLI) | payer OTHER ==
[~2019-07-08] MED LIST changes: +ISOVUE-370 76% 100ML VIAL (Q9967) As Ordered ONE
--- NOTE | 2019-07-08 15:15 | REP ---
REASON FOR EXAM: Dysuria. COMPARISON EXAM: 11/11/2018 and 04/28/2013 CONTRAST: [address] urogram was also obtained. Post processing was performed at the physician workstation. The lung bases are clear and unchanged. The precontrast enhanced portion of the examination shows mild diffuse low density throughout the hepatic parenchyma. There is no nephroureterolithiasis, hydronephrosis, or hydroureter. There are no urinary bladder calcifications. There are a few pelvic phleboliths. There are no choleliths. Contrast enhanced portion of the exam shows no evidence of enhancing hepatic lesion. The gallbladder, spleen, pancreas, adrenal glands and kidneys are within normal limits. There is a single tiny subcentimeter size low density focus in the superior pole of the left kidney consistent with a tiny simple cyst. This shows no enhancement characteristics. The abdominal aorta and para-aortic regions are within normal limits. The bowel loops and their mesenteries are within normal limits. There is no free fluid or free air. There is no intra-abdominal mass or adenopathy. CT PELVIS: There is no mass or adenopathy. There is no free fluid or free air. The bowel loops and their mesenteries are within normal limits. Bone window technique through the exam shows spinal degenerative changes consistent with the patient's age. CT urogram shows excellent visualization of the renal collecting system bilaterally and no evidence of abnormal narrowing or dilatation. Although not completely opacified with intravenous contrast, the opacified portions of the urinary bladder show no abnormalities. There is a small ventral hernia through which only mesentery protrudes and the aperture of which measures approximately 2 cm. Inferior to this, there is an additional ventral hernia of approximately the same size and again through which only mesentery protrudes. These ventral hernias are unchanged from the prior exam. IMPRESSION: 1. There is evidence of mild diffuse fatty infiltration of the liver. 2. There is an incidental tiny left renal cortical cyst. The examination is otherwise unremarkable with findings as described above. Electronically Signed by Mo Franklin DO 07/08/2019 03:48 P
== END ==
LOC: M RAD 13:00
DX: R30.0 Dysuria (principal); K76.0 Fatty (change of) liver, not elsewhere classified; N28.1 Cyst of kidney, acquired
CPT/HCPCS: 74178; Q9967

== ENCOUNTER → 2019-08-24 | Outpatient (REF) | payer OTHER ==
[~2019-08-24] MED LIST changes: -ISOVUE-370 76% 100ML VIAL (Q9967) As Ordered ONE
[2019-08-28 14:56] LABS: URINE COTININE LEVEL None Detected (.); URINE NICOTINE LEVEL None Detected (.)
== END ==
LOC: M LAB REF 13:38
PROVIDERS: ATTEND Surgery
DX: Z01.818 Encounter for other preprocedural examination (principal); F18.10 Inhalant abuse, uncomplicated; F17.210 Nicotine dependence, cigarettes, uncomplicated; E11.9 Type 2 diabetes mellitus without complications; I10 Essential (primary) hypertension; J44.9 Chronic obstructive pulmonary disease, unspecified; G47.33 Obstructive sleep apnea (adult) (pediatric)

== ENCOUNTER → 2019-09-14 | Outpatient (CLI) | payer OTHER ==
--- NOTE | 2019-09-14 09:04 | PFTRPT ---
Height: 64.00 Inches Weight: 316.00 Lbs BSA: 2.38 Diagnosis: R05 DATE OF PROCEDURE: 09/14/2019 ORDERED BY: Michelle Tirado Spirometry: Pre and post bronchodilator study of excellent technical quality. Forced vital capacity reduced. FEV1 out of proportion. Obstructive index is, therefore, reduced. Flow Volume Loop: Expiratory limb of the flow volume loop consistent with flow rate limitation. Favorable bronchodilator response is identified. Lung Volumes: Total lung capacity is normal. Residual volume suggests a degree of air trapping. Diffusing Capacity: Diffusing capacity is normal. Hemoglobin: Hemoglobin reduced at 11.7. Airway Mechanics: Airway resistance elevated with concomitant decrease in airway conductance. IMPRESSION: At least moderate obstructive ventilatory impairment with underlying air trapping. Mild anemia. Favorable bronchodilator response. Please correlate clinically. MTDD
--- NOTE | 2019-09-14 10:15 | REP ---
Two-view chest: 09/14/2019. Indication: Obstructive sleep apnea. Comparison: New 12/11/2016. Findings: The lungs are clear. There is no pleural effusion or pneumothorax. Cardiac silhouette is at the upper limits of normal in size. Impression: No acute cardiopulmonary process. Electronically Signed by Cortez Gray DO 09/14/2019 10:06 A
== END ==
LOC: M CARPUL 08:31
PROVIDERS: ATTEND Nurse Practitioner Family
DX: R05 Cough (principal); G47.33 Obstructive sleep apnea (adult) (pediatric)

== ENCOUNTER → 2019-11-01 | Outpatient (CLI) | payer OTHER ==
[~2019-11-01] MED LIST changes: -SIMV40TA2 PO; +SIMV40TA20 PO
[2019-11-01 17:01] LABS: BASO # 0.1 10^3/uL (0.0-0.2); BASO % 0.7 % (0.0-1.0); EOS # 0.2 10^3/uL (0.0-0.5); EOS % 2.1 % (0.0-3.0); HEMATOCRIT 45.9 % (36.0-47.0); HEMOGLOBIN 14.2 g/dl (12.0-15.5); LYMPH # 2.4 10^3/uL (1.5-5.0); LYMPH % 33.8 % (24.0-44.0); MEAN CORPUSCULAR HEMOGLOBIN 29.4 pg (27.0-33.0); MEAN CORPUSCULAR HGB CONC 30.9 g/dl (32.0-36.5); MONO # 0.4 10^3/uL (0.0-0.8); MONO % 5.8 % (0.0-5.0); NEUTROPHILS % 57.2 % (36.0-66.0); PLATELET COUNT, AUTOMATED 250 10^3/uL (150-450); RED BLOOD COUNT 4.83 10^6/uL (4.00-5.40)
[2019-11-01 17:02] LABS: HEMATOCRIT 45.9 % (36.0-47.0)
[2019-11-01 17:30] LABS: HEMOGLOBIN A1c 7.9 %
[2019-11-01 17:47] LABS: ALBUMIN 3.2 GM/DL (3.2-5.2); ALT/SGPT 34 U/L (12-78); BILIRUBIN,TOTAL 0.5 MG/DL (0.2-1.0); BLOOD UREA NITROGEN 11 MG/DL (7-18); CALCIUM LEVEL 8.8 MG/DL (8.5-10.1); CARBON DIOXIDE LEVEL 30 MEQ/L (21-32); CHLORIDE LEVEL 104 MEQ/L (98-107); CREATININE FOR GFR 0.78 MG/DL (0.55-1.30); FERRITIN 29 NG/ML (8-252); GLOMERULAR FILTRATION RATE > 60.0 (>51); GLUCOSE, FASTING 208 MG/DL (70-100); IRON (FE) 37 UG/DL (50-170); PERCENT SATURATION 11.9 % (13.2-45.0); PHOSPHORUS LEVEL 2.6 MG/DL (2.5-4.9); POTASSIUM SERUM 3.9 MEQ/L (3.5-5.1); SODIUM LEVEL 141 MEQ/L (136-145); TOTAL IRON BINDING CAPACITY 311 UG/DL (250-450); TOTAL PROTEIN 6.9 GM/DL (6.4-8.2)
[2019-11-01 17:52] LABS: TOTAL 25(OH) VITAMIN D 15.7 NG/ML (30.0-100.0); VITAMIN B12 LEVEL 814 PG/ML (247-911)
== END ==
LOC: M WUC 13:42
PROVIDERS: ATTEND Surgery
DX: K91.2 Postsurgical malabsorption, not elsewhere classified (principal); E55.9 Vitamin D deficiency, unspecified; Z98.84 Bariatric surgery status

== ENCOUNTER → 2019-11-02 | Outpatient (REF) | payer OTHER | LOC: M SFHCPLAZ 11:45 | PROVIDERS: ATTEND Family Medicine | DX: E11.29 Type 2 diabetes mellitus with other diabetic kidney complication (principal); Z53.9 Procedure and treatment not carried out, unspecified reason ==

== ENCOUNTER → 2020-05-03 | Outpatient (REF) | payer OTHER ==
[~2020-05-03] MED LIST changes: +MONT10TA4 PO
== END ==
LOC: M SFHCPLAZ 10:49
PROVIDERS: ATTEND Family Medicine
DX: E78.2 Mixed hyperlipidemia (principal); E11.29 Type 2 diabetes mellitus with other diabetic kidney complication

== ENCOUNTER → 2020-05-09 | Outpatient (CLI) | payer MEDICAID ==
[2020-05-09 13:34] LABS: CREATININE, URINE 28.5 MG/DL; MALB URINE SIEMENS 48.8 MG/L; MAU/CREAT RATIO 171.2 MCG/MG (0.0-30.0)
[2020-05-09 13:55] LABS: CHOLESTEROL RISK RATIO 5.58 (<5)
[2020-05-09 14:47] LABS: HEMOGLOBIN A1c 6.5 %
== END ==
LOC: M WUC 09:51
PROVIDERS: ATTEND Student in an Organized Health Care Education/Training Program
DX: E78.2 Mixed hyperlipidemia (principal); E11.29 Type 2 diabetes mellitus with other diabetic kidney complication

== ENCOUNTER → 2021-02-06 | Outpatient (REF) | payer OTHER ==
[~2021-02-06] MED LIST changes: +HYDR-3490 PO; -HYDR25TAB PO; +METH-1164 PO; -METH1TAB40 PO; +MONT10TA10 PO; -MONT10TA4 PO; +PANT40TA29; +PANT40TA29 PO; -PANT40TA3; -PANT40TA3 PO
[2021-02-06 14:00] LABS: HEMATOCRIT 49.8 % (36.0-47.0)
[2021-02-06 14:29] LABS: ALBUMIN 3.6 GM/DL (3.2-5.2); ALT/SGPT 21 U/L (12-78); BILIRUBIN,TOTAL 0.4 MG/DL (0.2-1.0); BLOOD UREA NITROGEN 12 MG/DL (7-18); CALCIUM LEVEL 9.6 MG/DL (8.5-10.1); CARBON DIOXIDE LEVEL 32 MEQ/L (21-32); CHLORIDE LEVEL 107 MEQ/L (98-107); CPK CREATINE PHOSPHOKINASE 77 U/L (26-192); CREATININE FOR GFR 0.74 MG/DL (0.55-1.30); FREE T4 1.09 NG/DL (0.76-1.46); GLOMERULAR FILTRATION RATE > 60.0 (>51); GLUCOSE, FASTING 93 MG/DL (70-100); IRON (FE) 56 UG/DL (50-170); POTASSIUM SERUM 4.9 MEQ/L (3.5-5.1); SODIUM LEVEL 142 MEQ/L (136-145); VITAMIN B12 LEVEL 401 PG/ML (247-911)
[2021-02-06 16:01] LABS: HEMOGLOBIN A1c 5.8 %
== END ==
LOC: M SFHCPLAZ 12:06
PROVIDERS: ATTEND Family Medicine
DX: R29.6 Repeated falls (principal); E11.29 Type 2 diabetes mellitus with other diabetic kidney complication; Z98.84 Bariatric surgery status; R53.82 Chronic fatigue, unspecified

== ENCOUNTER → 2021-04-07 | Outpatient (CLI) | payer OTHER ==
[~2021-04-07] MED LIST changes: +GABA-283 PO; -GABA-845 PO
[2021-04-07 13:54] LABS: CK-MB VALUE MASS < 1.0 NG/ML (<3.6); CPK CREATINE PHOSPHOKINASE 46 U/L (26-192); MB/CK RELATIVE INDEX 2.17 (< OR =4); TROPONIN I < 0.02 NG/ML (< 0.10)
== END ==
LOC: M LAB 12:59
PROVIDERS: ATTEND Student in an Organized Health Care Education/Training Program
DX: R07.9 Chest pain, unspecified (principal)

== ENCOUNTER → 2022-01-25 | Outpatient (REF) | payer OTHER ==
[~2022-01-25] MED LIST changes: +LOSA50TA28 PO; -LOSA50TA88 PO; -MONT10TA10 PO; +MONT10TA97 PO
== END ==
LOC: M SFHCADAM 17:20
PROVIDERS: ATTEND Family Medicine
DX: R09.81 Nasal congestion (principal)

== ENCOUNTER → 2022-03-11 | Outpatient (REF) | payer OTHER ==
[2022-03-11 12:52] LABS: BASO # 0.1 10^3/uL (0.0-0.2); EOS # 0.2 10^3/uL (0.0-0.5); EOS % 2.5 % (0.0-3.0); HEMATOCRIT 50.4 % (36.0-47.0); LYMPH # 2.6 10^3/uL (1.5-5.0); LYMPH % 37.1 % (24.0-44.0); MEAN CORPUSCULAR HEMOGLOBIN 29.4 pg (27.0-33.0); MEAN CORPUSCULAR HGB CONC 31.7 g/dl (32.0-36.5); MEAN CORPUSCULAR VOLUME 92.5 fl (80.0-96.0); MONO # 0.5 10^3/uL (0.0-0.8); MONO % 7.6 % (2.0-8.0); NEUTROPHILS # 3.6 10^3/uL (1.5-8.5); NEUTROPHILS % 51.4 % (36.0-66.0); PLATELET COUNT, AUTOMATED 177 10^3/uL (150-450); RED BLOOD COUNT 5.45 10^6/uL (4.00-5.40); WHITE BLOOD COUNT 7.1 10^3/uL (4.0-10.0)
[2022-03-11 13:18] LABS: HEMOGLOBIN A1c 6.1 %
[2022-03-11 13:27] LABS: ALBUMIN 3.4 GM/DL (3.2-5.2); ALT/SGPT 18 U/L (12-78); BILIRUBIN,TOTAL 0.4 MG/DL (0.2-1.0); BLOOD UREA NITROGEN 10 MG/DL (7-18); CALCIUM LEVEL 9.1 MG/DL (8.5-10.1); CARBON DIOXIDE LEVEL 31 MEQ/L (21-32); CHLORIDE LEVEL 109 MEQ/L (98-107); CHOLESTEROL LEVEL 124 MG/DL (<200); CHOLESTEROL RISK RATIO 2.818 (<5); CREATININE FOR GFR 0.68 MG/DL (0.55-1.30); GLOMERULAR FILTRATION RATE > 60.0 (>51); GLUCOSE, FASTING 124 MG/DL (70-100); HDL CHOLESTEROL 44 MG/DL (>40); LDL CHOLESTEROL 63 MG/DL (<100); NON-HDL-C 80 MG/DL; POTASSIUM SERUM 4.6 MEQ/L (3.5-5.1); SODIUM LEVEL 143 MEQ/L (136-145); TOTAL PROTEIN 6.5 GM/DL (6.4-8.2); TRIGLYCERIDES LEVEL 86 MG/DL (<150)
== END ==
LOC: M SFHCADAM 10:52
PROVIDERS: ATTEND Family Medicine
DX: Z00.00 Encounter for general adult medical examination without abnormal findings (principal)

== ENCOUNTER → 2022-03-28 | Outpatient (CLI) | payer OTHER | LOC: M ADAMS 13:33 | PROVIDERS: ATTEND Nurse Practitioner Family | DX: G47.33 Obstructive sleep apnea (adult) (pediatric) (principal) ==

== ENCOUNTER → 2022-04-12 | Outpatient (CLI) | payer OTHER | LOC: M RAD 13:28 | PROVIDERS: ATTEND Nurse Practitioner Family | DX: Z12.2 Encounter for screening for malignant neoplasm of respiratory organs (principal); F17.218 Nicotine dependence, cigarettes, with other nicotine-induced disorders ==

== ENCOUNTER → 2022-09-03 | Outpatient (REF) | payer OTHER ==
[~2022-09-03] MED LIST changes: -ASMA110A IN; +MOME110A IN
== END ==
LOC: M SFHCADAM 16:32
PROVIDERS: ATTEND Family Medicine
DX: J34.89 Other specified disorders of nose and nasal sinuses (principal)

== ENCOUNTER → 2022-10-03 | Outpatient (REF) | payer OTHER | LOC: M SFHCADAM 15:53 | PROVIDERS: ATTEND Physician Assistant | DX: R05.9 Cough, unspecified (principal) ==

== ENCOUNTER → 2022-11-01 | Outpatient (CLI) | payer OTHER | LOC: M ADAMS 15:01 | PROVIDERS: ATTEND Family Medicine | DX: J44.1 Chronic obstructive pulmonary disease with (acute) exacerbation (principal) ==

== ENCOUNTER → 2022-12-10 | Outpatient (CLI) | payer OTHER ==
[2022-12-10 16:42] LABS: RHEUMATOID FACTOR QUANT 3.5 IU/ML (<14)
[2022-12-10 16:44] LABS: VITAMIN B12 LEVEL 325 PG/ML (211-911)
[2022-12-10 16:45] LABS: FOLATE 12.9 NG/ML (>5.4)
[2022-12-10 19:16] LABS: HEMOGLOBIN A1c 6.1 % (4.0-6.0)
== END ==
LOC: M LABDRWAD 11:37
PROVIDERS: ATTEND Psychiatry & Neurology Neurology
DX: M54.9 Dorsalgia, unspecified (principal); G60.9 Hereditary and idiopathic neuropathy, unspecified

== ENCOUNTER → 2023-03-17 | Outpatient (REF) | payer OTHER ==
[~2023-03-17] MED LIST changes: -ASMA16.7 INH; +MOME13HF4 INH
[2023-03-17 14:15] LABS: ALBUMIN 3.5 G/DL (3.2-5.2); ALKALINE PHOSPHATASE 141 U/L (46-116); ALT/SGPT 18 U/L (7.0-40); AST/SGOT 18 U/L (<34); BILIRUBIN,TOTAL 0.4 MG/DL (0.3-1.2); BLOOD UREA NITROGEN 8 MG/DL (9-23); CALCIUM LEVEL 8.6 MG/DL (8.5-10.1); CARBON DIOXIDE LEVEL 29 MMOL/L (20-31); CHLORIDE LEVEL 109 MMOL/L (98-107); CREATININE FOR GFR 0.76 MG/DL (0.55-1.30); GLOMERULAR FILTRATION RATE > 60.0 (>51); GLUCOSE, FASTING 114 MG/DL (60-100); POTASSIUM SERUM 4.7 MMOL/L (3.5-5.1); SODIUM LEVEL 142 MMOL/L (136-145); TOTAL PROTEIN 6.5 G/DL (5.7-8.2)
[2023-03-17 14:42] LABS: HEMOGLOBIN A1c 6.3 % (4.0-6.0)
== END ==
LOC: M SFHCADAM 09:44
PROVIDERS: ATTEND Family Medicine
DX: E11.69 Type 2 diabetes mellitus with other specified complication (principal)

== ENCOUNTER 2023-03-31 11:11 | Inpatient (IN) | payer OTHER ==
[~2023-03-31] VITALS: Ht 162.6 cm; Wt 103.9 kg
[2023-03-31 12:01] LABS: BASO # 0.1 10^3/uL (0.0-0.2); BASO % 1.1 % (0.0-1.0); EOS # 0.1 10^3/uL (0.0-0.5); EOS % 1.8 % (0.0-3.0); HEMATOCRIT 49.5 % (36.0-47.0); HEMOGLOBIN 15.6 g/dl (12.0-15.5); LYMPH # 1.9 10^3/uL (1.5-5.0); LYMPH % 33.2 % (24.0-44.0); MEAN CORPUSCULAR HEMOGLOBIN 28.9 pg (27.0-33.0); MEAN CORPUSCULAR HGB CONC 31.5 g/dl (32.0-36.5); MEAN CORPUSCULAR VOLUME 91.8 fl (80.0-96.0); MONO # 0.3 10^3/uL (0.0-0.8); NEUTROPHILS # 3.3 10^3/uL (1.5-8.5); NEUTROPHILS % 57.5 % (36.0-66.0); PLATELET COUNT, AUTOMATED 183 10^3/uL (150-450); RED BLOOD COUNT 5.39 10^6/uL (4.00-5.40); WHITE BLOOD COUNT 5.7 10^3/uL (4.0-10.0)
[2023-03-31] MEDS ORDERED: NS 1,000 ML IV ONE (12:05)
[2023-03-31] MEDS ORDERED: ACETAMINOPHEN 1000MG 100ML IV BAG IV ONE (12:10)
[2023-03-31] MEDS ORDERED: METOCLOPRAMIDE INJ 10MG/2ML VIAL IV ONE (12:10)
[2023-03-31 12:22] LABS: INR 0.93; PARTIAL THROMBOPLASTIN TIME 30.2 SECONDS (24.8-34.2); PROTHROMBIN TIME 12.7 SECONDS (12.5-14.5)
[2023-03-31] MEDS ORDERED: ISOVUE-370 76% 100ML VIAL As Ordered ONE (12:27)
[2023-03-31 12:33] LABS: CK-MB VALUE MASS < 1.0 NG/ML (<3.6)
[2023-03-31 12:35] LABS: CPK CREATINE PHOSPHOKINASE 80 U/L (34-145); MB/CK RELATIVE INDEX 1.25 (< OR =4)
[2023-03-31 13:54] LABS: RSV AMPLIFICATION NEGATIVE (NEGATIVE)
[2023-03-31] MEDS ORDERED: ALB2.5NEB INH (14:20)
[2023-03-31] MEDS ORDERED: LISI40TA4 PO (14:24)
[2023-03-31] MEDS ORDERED: FLUT1INH3 INH (14:24)
[2023-03-31] MEDS ORDERED: CYCL-707 PO (14:24)
[2023-03-31] MEDS ORDERED: QUET100T2 PO (14:24)
[2023-03-31] MEDS ORDERED: LAMO25TA4 PO (14:24)
[2023-03-31] MEDS ORDERED: BUDE0.5S6 INH (14:24)
[2023-03-31] MEDS ORDERED: ATOR40TA75 PO (14:27)
[2023-03-31] MEDS ORDERED: AMIT10TA7 PO (14:27)
[2023-03-31] MEDS ORDERED: SPIR1AER INH (14:27)
[2023-03-31] MEDS ORDERED: HOME MED LIST COMPLETE! XX SCH (14:30)
[2023-03-31] MEDS ORDERED: BENZONATATE 100MG CAPSULE PO ONE (15:25)
[2023-03-31] MEDS ORDERED: LORazepam 2 MG/ML 1ML VIAL IV STA (16:50)
[2023-03-31] MEDS ORDERED: NS 500 ML IV ONE (22:45)
[2023-03-31] MEDS ORDERED: ALBUTEROL SULFATE 2.5MG/0.5ML INH NEB SOLN NEB PRN (22:45)
[2023-03-31] MEDS ORDERED: CYCLOBENZAPRINE 10MG TABLET PO PRN (22:45)
[2023-03-31] MEDS ORDERED: ASPIRIN 81MG CHEW TABLET PO ONE (22:45)
[2023-03-31] MEDS: ATORVASTATIN 20 MG TAB PO SCH (23:40)
[2023-03-31] MEDS: lamoTRIgine 25MG TAB PO SCH (23:40)
[2023-03-31] MEDS: NS 1,000 ML IV SCH (23:41)
[2023-04-01] VITALS (17 sets, daily range): BP systolic 151–211; BP diastolic 72–146
[2023-04-01] MEDS: NS 1,000 ML IV SCH (00:42)
[2023-04-01] MEDS: hydrALAZINE 20MG/ML 1ML VIAL IV PRN ×2 (00:49→17:40)
[2023-04-01] MEDS: IPRATROPIUM 0.5MG/ALBUTEROL 2.5MG INH SOL UD 3ML (DUONEB) NEB SCH ×4 (01:30→20:45)
[2023-04-01 05:28] LABS: ERYTHROCYTE SEDIMENTATION RATE 19 mm/hr (0-30)
[2023-04-01 05:40] LABS: CHOLESTEROL LEVEL 88 MG/DL (<200); CHOLESTEROL RISK RATIO 2.97 (<5); HDL CHOLESTEROL 29.6 MG/DL (>40); LDL CHOLESTEROL 44.6 MG/DL (<100); NON-HDL-C 58.4 MG/DL; TRIGLYCERIDES LEVEL 69 MG/DL (<150)
[2023-04-01] MEDS: HEPARIN SOD (PORCINE) 5000UNITS/ML 1ML VIAL/SYRINGE SQ SCH ×3 (05:46→21:34)
[2023-04-01] MEDS ORDERED: ASPIRIN 81MG CHEW TABLET PO SCH (09:00)
[2023-04-01 09:26] LABS: ALKALINE PHOSPHATASE 119 U/L (46-116); ALT/SGPT 15 U/L (7.0-40); AST/SGOT 15 U/L (<34); BILIRUBIN,TOTAL 0.5 MG/DL (0.3-1.2); BLOOD UREA NITROGEN 9 MG/DL (9-23); CALCIUM LEVEL 8.2 MG/DL (8.5-10.1); CARBON DIOXIDE LEVEL 25 MMOL/L (20-31); CHLORIDE LEVEL 110 MMOL/L (98-107); CREATININE FOR GFR 0.64 MG/DL (0.55-1.30); GLOMERULAR FILTRATION RATE > 60.0 (>51); GLUCOSE, FASTING 105 MG/DL (60-100); MAGNESIUM LEVEL 1.7 MG/DL (1.8-2.4); POTASSIUM SERUM 3.8 MMOL/L (3.5-5.1); SODIUM LEVEL 142 MMOL/L (136-145); TOTAL PROTEIN 5.6 G/DL (5.7-8.2)
[2023-04-01 10:27] LABS: HEMATOCRIT 42.9 % (36.0-47.0); HEMOGLOBIN 13.7 g/dl (12.0-15.5); MEAN CORPUSCULAR HEMOGLOBIN 28.7 pg (27.0-33.0); MEAN CORPUSCULAR HGB CONC 31.9 g/dl (32.0-36.5); MEAN CORPUSCULAR VOLUME 89.9 fl (80.0-96.0); PLATELET COUNT, AUTOMATED 172 10^3/uL (150-450); RED BLOOD COUNT 4.77 10^6/uL (4.00-5.40); WHITE BLOOD COUNT 5.9 10^3/uL (4.0-10.0)
[2023-04-01] MEDS ORDERED: MAG SULF 1GM/100ML (MAG RUN) 1 GM in IV 1 EA IV ONE (12:00)
[2023-04-01] MEDS: amLODIPine 5 MG TAB PO SCH (12:40)
[2023-04-01] MEDS: CLOPIDOGREL 75 MG TAB PO SCH (12:41)
[2023-04-01 12:50] LABS: RHEUMATOID FACTOR QUANT 5.9 IU/ML (<14)
[2023-04-01 13:03] LABS: HEMOGLOBIN A1c 6.3 % (4.0-6.0)
[2023-04-01] MEDS ORDERED: LABETALOL 100MG/20ML VIAL IV STA (18:16)
[2023-04-01] MEDS ORDERED: LABETALOL 200 MG TAB PO ONE (18:20)
[2023-04-01] MEDS ORDERED: BUDESONIDE 0.5 MG/2 ML INHALATION SUSPENSION INH SCH (21:00)
[2023-04-01] MEDS ORDERED: lisinopriL 40MG TAB PO SCH (21:00)
[2023-04-01] MEDS ORDERED: AMITRIPTYLINE 10MG TABLET PO SCH (21:00)
[2023-04-01] MEDS ORDERED: QUEtiapine FUMARATE 100 MG TAB PO SCH (21:00)
[2023-04-01] MEDS: ATORVASTATIN 20 MG TAB PO SCH (21:34)
[2023-04-01] MEDS: lamoTRIgine 25MG TAB PO SCH (21:34)
[2023-04-02] VITALS: BP 165/72
[2023-04-02] MEDS: IPRATROPIUM 0.5MG/ALBUTEROL 2.5MG INH SOL UD 3ML (DUONEB) NEB SCH ×2 (02:13→07:57)
[2023-04-02 04:00] VITALS: BP 119/59
[2023-04-02] MEDS: HEPARIN SOD (PORCINE) 5000UNITS/ML 1ML VIAL/SYRINGE SQ SCH (05:05)
[2023-04-02 07:41] VITALS: BP 164/82
[2023-04-02 07:45] VITALS: BP 162/80
[2023-04-02] MEDS: CLOPIDOGREL 75 MG TAB PO SCH (07:54)
[2023-04-02] MEDS: amLODIPine 5 MG TAB PO SCH (07:55)
[2023-04-02] MEDS ORDERED: **hydrALAZINE** 50 MG TAB PO ONE (08:05)
[2023-04-02] MEDS ORDERED: CLOP75TA2 PO (08:14)
[2023-04-02] MEDS ORDERED: AMLO1TAB24 PO (08:14)
[2023-04-02] MEDS ORDERED: ASPI81TAEC PO (08:14)
[2023-04-02] MEDS ORDERED: HYDR-3490 PO (08:14)
[2023-04-02 08:34] VITALS: BP 164/82
[2023-04-02] MEDS ORDERED: ASPIRIN 81MG ENTERIC TABLET PO SCH (09:00)
[2023-04-02 10:00] VITALS: BP 152/84
[2023-04-02] MEDS ORDERED: ADULKIT XX (11:15)
== END 2023-04-02 13:00 | disposition home or self-care (01) | DRG 45 ==
LOC: M ED 11:11 → M ED INP 22:45 → M ICU 04-01 00:33
PROVIDERS: ADMIT Internal Medicine; ATTEND Internal Medicine
DX: I63.9 Cerebral infarction, unspecified (principal); I10 Essential (primary) hypertension; I16.1 Hypertensive emergency; J44.9 Chronic obstructive pulmonary disease, unspecified; E78.5 Hyperlipidemia, unspecified; F31.9 Bipolar disorder, unspecified; Z91.040 Latex allergy status; Z79.899 Other long term (current) drug therapy; F17.210 Nicotine dependence, cigarettes, uncomplicated; M54.59 Other low back pain

== ENCOUNTER → 2023-05-08 | Outpatient (CLI) | payer OTHER ==
[~2023-05-08] MED LIST changes: +ADULKIT XX; +ALB2.5NEB INH; +AMIT10TA7 PO; +AMLO1TAB24 PO; +ASPI81TAEC PO; +ATOR40TA75 PO; +BUDE0.5S6 INH; +CLOP75TA2 PO; +CYCL-707 PO; +FLUT1INH3 INH; +LAMO25TA4 PO; +LISI40TA4 PO; +QUET100T2 PO; +SPIR1AER INH
== END ==
LOC: M RAD 12:33
PROVIDERS: ATTEND Nurse Practitioner Family
DX: Z12.2 Encounter for screening for malignant neoplasm of respiratory organs (principal); F17.210 Nicotine dependence, cigarettes, uncomplicated; R91.8 Other nonspecific abnormal finding of lung field

== ENCOUNTER → 2023-07-04 | Outpatient (REF) | payer OTHER ==
[~2023-07-04] MED LIST changes: -GABA-283 PO; +GABA-284 PO
[2023-07-07 20:11] LABS: ANTI-CHROMATIN ANTIBODIES <0.2 AI (0.0-0.9); CYCLIC CITRULLINATED PEPTIDE 5 units (0-19)
== END ==
LOC: M LABDRWAD 15:19
PROVIDERS: ATTEND Psychiatry & Neurology Neurology
DX: I63.9 Cerebral infarction, unspecified (principal); M32.9 Systemic lupus erythematosus, unspecified; Z79.01 Long term (current) use of anticoagulants

== ENCOUNTER → 2023-11-25 | Outpatient (CLI) | payer OTHER | LOC: M PLAIMG 11:04 | PROVIDERS: ATTEND Nurse Practitioner Family | DX: I70.0 Atherosclerosis of aorta (principal); J44.9 Chronic obstructive pulmonary disease, unspecified ==

== ENCOUNTER → 2024-07-20 | Outpatient (REF) | payer OTHER ==
[2024-07-20 14:00] LABS: CREATININE, URINE 36.2 MG/DL; HEMOGLOBIN A1c 6.1 % (4.0-6.0)
[2024-07-20 14:01] LABS: MALB URINE SIEMENS < 3.0 MG/L; MAU/CREAT RATIO 8.2 MCG/MG (0.0-30.0); THYROID STIMULATING HORMONE 3.184 uIU/ML (0.55-4.78)
[2024-07-20 14:03] LABS: ALBUMIN 3.3 G/DL (3.2-5.2); ALKALINE PHOSPHATASE 118 U/L (46-116); ALT/SGPT 13 U/L (7.0-40); AST/SGOT 12 U/L (<34); BILIRUBIN,TOTAL 0.4 MG/DL (0.3-1.2); BLOOD UREA NITROGEN 14 MG/DL (9-23); CARBON DIOXIDE LEVEL 32 MMOL/L (20-31); CHLORIDE LEVEL 105 MMOL/L (98-107); CREATININE FOR GFR 0.64 MG/DL (0.55-1.30); FREE T4 1.01 NG/DL (0.89-1.76); GLOMERULAR FILTRATION RATE > 60.0 (>51); GLUCOSE, FASTING 95 MG/DL (60-100); SODIUM LEVEL 143 MMOL/L (136-145); TOTAL PROTEIN 6.5 G/DL (5.7-8.2)
== END ==
LOC: M SFHCADAM 10:52
PROVIDERS: ATTEND Family Medicine
DX: L29.9 Pruritus, unspecified (principal); E11.69 Type 2 diabetes mellitus with other specified complication

== ENCOUNTER → 2025-03-15 | Outpatient (CLI) | payer OTHER ==
[~2025-03-15] MED LIST changes: +GABA-1490 PO; -GABA600T4 PO; +NYST1POW3 TOP; -NYST1POW9 TOP
== END ==
LOC: M ADAMS 13:02
PROVIDERS: ATTEND Family Medicine
DX: R05.1 Acute cough (principal)

== ENCOUNTER → 2025-03-15 | Outpatient (REF) | payer OTHER ==
[2025-03-15 19:08] LABS: CREATININE, URINE 18.9 MG/DL; MALB URINE SIEMENS < 3.0 MG/L
[2025-03-15 19:48] LABS: HEMOGLOBIN A1c 6.4 % (4.0-6.0)
== END ==
LOC: M SFHCADAM 12:26
PROVIDERS: ATTEND Family Medicine
DX: E11.29 Type 2 diabetes mellitus with other diabetic kidney complication (principal)

== ENCOUNTER → 2025-03-31 | Outpatient (CLI) | payer OTHER | LOC: M RAD 17:32 | PROVIDERS: ATTEND Physician Assistant | DX: Z12.2 Encounter for screening for malignant neoplasm of respiratory organs (principal); F17.218 Nicotine dependence, cigarettes, with other nicotine-induced disorders; J43.9 Emphysema, unspecified ==